=== PATIENT | female | born 1955 | race Caucasian/White ===

== ENCOUNTER 2018-11-07 19:49 | Outpatient (REF) | payer BC, SELFPAY | END 2018-11-07 20:09 | LOC: LBN 19:49 | PROVIDERS: PCP Nurse Practitioner Family; Visit Provider Nurse Practitioner Family | DX: R35.0 Frequency of micturition (principal) | CPT/HCPCS: 87077; 87086; 87186 ==

== ENCOUNTER 2018-11-25 01:27 | Outpatient (CLI) | payer MEDICARE, BC, SELFPAY ==
[2018-11-25 08:57] LABS: ALT 21 U/L (14-59); AST 18 U/L (15-37); Albumin 3.8 g/dL (3.4-5.0); Alkaline Phosphatase 64 U/L (46-116); Anion Gap 10.5 mmol/L (3-11); BUN 12 mg/dL (7-18); Bilirubin, Total 0.4 mg/dL (0.2-1.0); CO2 26.5 mmol/L (21.0-32.0); CREATININE 0.88 mg/dL (0.55-1.02); Calcium 9.3 mg/dL (8.5-10.1); Calculated LDL 163 mg/dL; Chloride 107 mmol/L (98-107); Cholesterol 239 mg/dL (50-200); Glucose 109 mg/dL (70-100); HDL Cholesterol 62 mg/dL (40-60); Hemoglobin A1C 5.7 % (4.5-6.2); Potassium 4.1 mmol/L (3.5-5.1); Sodium 144 mmol/L (136-145); Total Protein 6.7 g/dL (6.4-8.2); Triglyceride 71 mg/dL (30-150)
== END 2018-11-25 01:47 ==
PROVIDERS: PCP Nurse Practitioner Family; Visit Provider Nurse Practitioner Family
DX: E78.5 Hyperlipidemia, unspecified (principal); R73.03 Prediabetes
CPT/HCPCS: 36415; 80053; 80061; 83036

== ENCOUNTER 2018-12-25 01:29 | Outpatient (CLI) | payer MEDICARE, BC, SELFPAY ==
--- NOTE | 2018-12-25 15:00 | DI.DEXA_ITS ---
EXAM: XR DEXA BONE DENSITY W/WO AIMEE INDICATION: Osteoporosis screening, Z78.0, postmenopausal status. COMPARISON: 2012 TECHNIQUE: 2D digital imaging was performed. FINDINGS: The AIMEE image shows no evidence of compression fractures. Bone mineral density measurements of the l umbar spine correspond to a total T-score of -0.1, in the normal range. This is a 4.2 percent decrea se when compared with 2012. Bone mineral density measurements of the left hip correspond to a total T-score of 1.0 and a femoral neck T-score of 0.6, in the normal range. This is a 6.6 percent decrease from the previous exam. The bone mineral density measurements of the right forearm correspond to a T-score of the distal thir d of -1.3, in the osteopenic range. This represents a 4.9 percent decrease when compared with the pr evious exam. IMPRESSION: Normal bone mineral density of the lumbar spine and left hip. Osteopenia of the right forearm.
--- NOTE | 2018-12-25 15:24 | DI.MAMMO_ITS ---
EXAM: MG MAMMO SCREENINGd CLINICAL HISTORY: screening, Z12.39 TECHNIQUE: Mammograms were interpreted according to the usual protocol including computer analysis w [employer] CAD system, tomosynthesis and C-view imaging. COMPARISON: [id number] FINDINGS: The breasts are composed of scattered areas of fibroglandular density, breast density category B. No suspicious masses or microcalcifications are seen. There has been no significant change when compared with the prior examinations. IMPRESSION: Category 1, negative mammogram. Yearly screening mammography is recommended. BI-RADS Cat 1 - Negative Breast Density - Category B - Scattered areas of fibroglandular density
== END 2018-12-25 01:49 ==
PROVIDERS: PCP Nurse Practitioner Family; Visit Provider Nurse Practitioner Family
DX: Z12.31 Encounter for screening mammogram for malignant neoplasm of breast (principal); M85.88 Other specified disorders of bone density and structure, other site
CPT/HCPCS: 77063; 77067; 77080

== ENCOUNTER 2019-01-05 13:31 | Outpatient (REF) | payer MEDICARE, BC, SELFPAY ==
[2019-01-05 19:38] LABS: Bilirubin Negative (Negative); Blood Trace-intact (Negative); Clarity Clear (Clear); Glucose Negative (Negative); Ketones Negative (Negative); Leukocyte Esterase Small (Negative); Nitrite Negative (Negative); Specific Gravity <= 1.005 (1.005-1.025); Urobilinogen 0.2 EU/dL (Up TO 0.2); pH 5.5 (5-8)
[2019-01-05 20:59] LABS: Bacteria Moderate HPF (Negative); C & S Indicated? Yes; Casts Negative LPF (Negative); Crystals Negative HPF (Negative); Epithelial Cells Rare HPF (Negative); Mucus Negative (Negative); Other Cells Negative (Negative)
== END 2019-01-05 13:51 ==
LOC: LBN 13:31
PROVIDERS: PCP Nurse Practitioner Family; Visit Provider Nurse Practitioner Family
DX: R39.15 Urgency of urination (principal)
CPT/HCPCS: 81003; 81015; 87086

== ENCOUNTER → 2019-02-27 12:57 | Outpatient (BNVA) | payer MEDICARE, BC, SELFPAY | PROVIDERS: PCP Nurse Practitioner Family; Referring Provider Nurse Practitioner Family; Visit Provider Physical Therapy Assistant | DX: Z12.11 Encounter for screening for malignant neoplasm of colon (principal); Z80.0 Family history of malignant neoplasm of digestive organs ==

== ENCOUNTER 2019-03-04 13:35 | Outpatient (CLI) | payer MEDICARE, BC, SELFPAY ==
--- NOTE | 2019-03-04 13:55 | DI.RAD_ITS ---
EXAM: XR SHOULDER RT COMPLETE 2+V INDICATION: Shoulder Pain. COMPARISON: LEFT SHOULDER COMPLETE from 08/19/2012 TECHNIQUE: 2D digital imaging was performed. FINDINGS: No significant degenerative changes of the AC joint or glenohumeral joint. No tendon or joint space calcifications are seen. IMPRESSION: Negative right shoulder.
== END 2019-03-04 13:55 ==
PROVIDERS: PCP Nurse Practitioner Family; Visit Provider Student in an Organized Health Care Education/Training Program
DX: M25.511 Pain in right shoulder (principal); M75.01 Adhesive capsulitis of right shoulder
CPT/HCPCS: 99203; 99214; 73030

== ENCOUNTER 2019-03-20 08:19 | Day surgery (SDC) | payer MEDICARE, BC, SELFPAY ==
[2019-03-20 08:45] VITALS: BP 143/82; PULSE 69; RESP 18; TEMP 36.2; O2SAT 100
[2019-03-20] MEDS: Lactated Ringers 1,000 ML 80 ML IV (09:23)
--- NOTE | 2019-03-20 10:14 | W.COLOREPORT ---
Date of service: 03/20/19 Time of Service: 10:14 Colonoscopy Report Date of procedure: 03/20/19 Pre-op diagnosis general: 1st degee relative w/ CRC Post-op diagnosis procedure note: other (divertic) Procedure: CE Anesthesia proc note operative: GETA Estimated blood loss (mL): 0 Pathology: none sent Complications: None Disposition: same day Prep: Miralax/Dulcolax Retraction Time: 10 mins Procedure Description: After informed consent was obtained the patient was taken to the procedure room and placed in a left decubitous position. Monitors were applied and a time out was done. The patients name, date of , procedure, allergies to medications and metal in their body was reviewed. The patient was then sedated. Once sedated and comfortable a rectal exam was done. External exam shows few small anal tags/ext hemorrhoids. Internal exam revealed a normal sphincter tone and no palpable masses. The scope was then introduced and retrofelexed. No internal hemorrhoids were identified. The scope was then advanced to the cecum w/mild difficulty. Her colon is very tortuous and redundant. The TI and appendiceal orifice were identified. The prep was good. The scope was then slowly retracted over 10 minutes back into the rectum. no polyps or AVMs identified she has a few small scattered diverticula confined to the sigmoid colon with no signs of active bleeding or infection.. The scope was removed and the patient was woken up and taken back to Same day surgery in stable condition. The patient tolerated the procedure well and there were no immediate complications. Follow up: The patient should follow up in 5 years unless they develop changes in bowel habits or other new gastrointestinal complaints.
--- NOTE | 2019-03-20 10:27 | PDOC.DSDIS_ITS ---
Discharge Plan Disposition Patient Disposition: HOME Condition: Good Discharge Details Reason For Visit: colon scope Attending Provider: Giovana Palma Primary Care Provider: Tatiana Martínez Home Meds and New Rx's Prescriptions: Continued calcium carb,lactat-vitamin D3 200 mg calcium -250 unit tablet 2 tab PO DAILY RF: 0 Shingrix (PF) 50 mcg/0.5 mL suspension for reconstitution 0.5 ml IM ONCE Qty: 1 RF: 0 sulfamethoxazole-trimethoprim [Bactrim DS] 800-160 mg tablet 1 tab PO Q12H Qty: 10 RF: 0 vitamin D 1 cap every other day RF: 0 Discontinued polyethylene glycol 3350 17 gram/dose powder 238 g PO ONCE Qty: 238 RF: 0 bisacodyl [Dulcolax (bisacodyl)] 5 mg tablet,delayed release (DR/EC) 5 mg PO ONCE Qty: 4 RF: 0 Discharge Instructions Instructions: Diverticulosis (DC), Diverticulosis Diet (GEN), High Fiber Diet (GEN) Additional Instructions: Findings:few small diverticula. Avoid straining/constipation follow a high fiber diet, and consider adding in a fiber supplement like metamucil or phsyllium Follow up: repeat scope in 5 yrs time do to family History. Please call if you develop: fevers >101.5 Nausea or Vomiting Abdominal pain that is not transient DAY SURGERY UNIT POST COLONOSCOPY INSTRUCTIONS 1. Because there will be medication in your system for the next 24 hours, you may feel a little sleepy. Your coordination will be affected. Therefore: a. Do not drive or operate dangerous equipment for 24 hours. b. Do not drink alcohol beverages for 24 hours (not even beer). c. Plan to go home and rest for the day. 2. Generally there are no restrictions on your activity after a day or so has gone by, but you may feel a bit fatigued for a few days. 3 After you arrive home you may have a light meal and return to a normal diet as you can tolerate it without feeling sick to your stomach. 4. After surgery, you may feel pain or discomfort. This should be only transient , but if it persists please contact your doctor. 5. If there are any questions regarding the findings of your procedure, please feel free to contact your doctor. 6. If you are unable to contact your doctor with a problem, contact the hospital at [phone]. 7. Continue all your regular medications unless directed otherwise. I understand the above instructions and have no questions. Signature of Patient or Responsible Adult Escort Date/Time Name of Responsible Adult Escort Signature of Nurse Date/Time Activity:: No lifting over 20 pounds or strenuous activity x24 hours Diet:: Small light meals x24 hours Discharge Orders Discharge Orders: Discharge Order (Routine); Ordered 03/20/19 Ordered By: Giovana Palma DS: Diagnosis Discharge Diagnosis (1) Diverticula of colon: Status: Acute
[2019-03-20 10:46] VITALS: BP 133/78; PULSE 50; RESP 16; TEMP 36.2; O2SAT 100
== END 2019-03-20 11:18 | disposition home or self-care (01) ==
PROVIDERS: PCP Nurse Practitioner Family; Visit Provider Surgery
PROC: 0DJD8ZZ Inspection of Lower Intestinal Tract, Via Natural or Artificial Opening Endoscopic (ICD-10-PCS; CPT 45378; principal; 2019-03-20 09:45)
DX: Z12.11 Encounter for screening for malignant neoplasm of colon (principal); Z80.0 Family history of malignant neoplasm of digestive organs; K57.30 Diverticulosis of large intestine without perforation or abscess without bleeding; K63.89 Other specified diseases of intestine; K64.4 Residual hemorrhoidal skin tags
CPT/HCPCS: G0105; J2001; J2704

== ENCOUNTER 2020-01-25 03:53 | Outpatient (CLI) | payer MEDICARE, BC, SELFPAY ==
[2020-01-25 11:28] LABS: Hemoglobin A1C 5.6 % (<5.7)
[2020-01-25 12:18] LABS: Anion Gap 5.6 mmol/L (3-11); BUN 17 mg/dL (7-18); CO2 29.4 mmol/L (21.0-32.0); CREATININE 0.98 mg/dL (0.55-1.02); Calculated LDL 216 mg/dL (<100); Chloride 108 mmol/L (98-107); Cholesterol 316 mg/dL (<200); Estimated GFR 56.78 (mL/min/1.73m2); Glucose 96 mg/dL (74-106); HDL Cholesterol 64 mg/dL (40-60); Potassium 4.4 mmol/L (3.5-5.1); Sodium 143 mmol/L (136-145); Triglyceride 184 mg/dL (<150)
[2020-01-25 12:40] LABS: Vitamin D 25 Total 16.9 ng/ml (30-100)
== END 2020-01-25 04:13 ==
PROVIDERS: PCP Nurse Practitioner Family; Visit Provider Nurse Practitioner Family
DX: E78.5 Hyperlipidemia, unspecified (principal); R73.03 Prediabetes; M85.80 Other specified disorders of bone density and structure, unspecified site
CPT/HCPCS: 36415; 80048; 80061; 82306; 83036

== ENCOUNTER 2020-08-02 03:51 | Outpatient (CLI) | payer MEDICARE, BC, SELFPAY ==
[2020-08-02 15:28] LABS: Calculated LDL 176 mg/dL (<100); Cholesterol 258 mg/dL (<200); HDL Cholesterol 68 mg/dL (40-60); Triglyceride 72 mg/dL (<150)
[2020-08-02 15:37] LABS: Uric Acid 5.8 mg/dL (2.6-6.0)
[2020-08-04 05:16] LABS: Vitamin D 25 Total 48.1 ng/mL (30-100)
== END 2020-08-02 03:52 | disposition home or self-care (01) ==
LOC: LBO 03:51
PROVIDERS: PCP Nurse Practitioner Family; Visit Provider Nurse Practitioner Family
DX: E78.5 Hyperlipidemia, unspecified (principal); M79.674 Pain in right toe(s); E55.9 Vitamin D deficiency, unspecified
CPT/HCPCS: 36415; 80061; 82306; 84550

== ENCOUNTER 2021-05-09 00:25 | Outpatient (CLI) | payer MEDICARE, BC, SELFPAY ==
--- NOTE | 2021-05-09 07:30 | DI.MAMMO_ITS ---
Exam(s) MAMMO SCREENING EXAM: MAMMO SCREENING CLINICAL HISTORY: screening,z12.39 TECHNIQUE: Mammograms were interpreted according to the usual protocol including computer analysis w [employer] CAD system, tomosynthesis and C-view imaging. COMPARISON: 2011 through 2018 FINDINGS: The breasts are composed of scattered fibroglandular densities, Breast Density category B. No suspicious masses or suspicious microcalcifications are seen. No skin thickening or abnormal axillary lymph nodes are seen. There has been no significant change from prior exams. IMPRESSION: BI-RADS Category 1, Negative mammogram Yearly screening mammography is recommended. Breast Density - Category B, scattered fibroglandular densities. A negative radiographic report should not delay biopsy if a dominant or clinically suspicious mass is present. Up to ten percent of cancers are not identified on mammography. A negative report may reinforce clinical impression. Adenosis and dense breasts may obscure an underlying neoplasm. False positive reports average 6 to 10%. Patient will receive a letter notifying them of these results.
== END 2021-05-09 00:45 ==
PROVIDERS: PCP Family Medicine; Visit Provider Family Medicine
DX: Z12.31 Encounter for screening mammogram for malignant neoplasm of breast (principal)
CPT/HCPCS: 77063; 77067

== ENCOUNTER 2021-09-06 10:52 | Inpatient (IN) | payer MEDICARE, BC, SELFPAY ==
[2021-09-06] VITALS (11 sets, daily range): BP systolic 140–179; BP diastolic 67–84; PULSE 56–71; RESP 12–16; TEMP 35.9–37; O2SAT 94–100; BMI 20.8
--- NOTE | 2021-09-06 11:00 | DI.CT_ITS ---
Exam(s) CT ABDOMEN PELVIS WO EXAM: CT ABDOMEN PELVIS WO CLINICAL HISTORY: right flank pain radiating to RLQ. TECHNIQUE: Imaging Protocol: Axial computed tomography images with coronal and sagittal reformatted images were created and reviewed CONTRAST MATERIAL: Intravenous: none Oral: None COMPARISON: No exams were available for comparison FINDINGS: VISUALIZED LUNG BASES: Mild symmetrical benign-appearing markings in both lung bases. No ominous pul monary nodules. No pleural effusions. ABDOMEN: There is no ascites. LIVER: There are no obvious focal hepatic lesions evident of this noninfused study. GALLBLADDER/BILIARY: No obvious gallbladder pathology. CBD is not dilated. PANCREAS: No evidence of pancreatic mass nor dilatation of the pancreatic duct. SPLEEN: Spleen is not enlarged. No obvious intrasplenic lesions. ADRENALS: There are no significant adrenal masses. KIDNEYS:Left kidney unremarkable. There is 2 nonobstructive calculus in lower pole calyx of the righ t kidney. Right ureter unremarkable. No calculi in the ureter nor in the ureterovesical junction. No calculi in the urinary bladder ABDOMINAL AORTA: Abdominal aorta is not enlarged. LYMPH NODES: There is no retroperitoneal nor paraaortic adenopathy. ABDOMINAL WALL: No evidence of significant anterior abdominal wall nor inguinal hernia. GI: There is no evidence of bowel obstruction, free air, nor abscess. PELVIS: LYMPH NODES: There is no intrapelvic nor inguinal adenopathy. GI: The appendix is thickened to a diameter of 9 millimeters and is straightening. It is retrocecal. There is some surrounding streaking.No evidence of sigmoid diverticulitis. URINARY BLADDER: No calculi nor obvious masses evident REPRODUCTIVE: Uterus is atrophic. No abnormal adnexal masses. No free fluid. OSSEOUS: No significant osseous lesions. Sacroiliac joints unremarkable. Advanced disc space narrowing at L5-S1 level noted. IMPRESSION: 1. Findings are consistent with acute retrocecal appendicitis. No evidence of rupture at this time. 2. Right renal calculi incidentally noted. Report called by myself to ER provider. RADIATION DOSE DELIVERED: 748.81mGy.cm Total DLP DATA REPOSITORY: All CT scans at this facility are submitted to the National Radiology Data Registry (NRDR) Dose Index Registry (DIR) with the [employer] (ACR). RADIATION OPTIMIZATION: All CT scans at this facility use at least one of these dose optimization te chniques: automated exposure control; mA and/or kV adjustment per patient size (includes targeted exa ms where dose is matched to clinical indication); or iterative reconstruction.
[2021-09-06 11:35] LABS: Abs Immature Grans 0.01 10^3/uL (0.0-0.06); Absolute Basophil Count 0.02 10^3/uL (0.0-0.2); Absolute Eosinophil Count 0.01 10^3/uL (0.0-0.7); Absolute Lymphocyte Count 0.81 10^3/uL (1.2-3.4); Absolute Monocyte Count 0.23 10^3/uL (0.1-0.8); Absolute Neutrophil Count 4.72 10^3/uL (1.2-6.7); Basophils % 0.3; Eosinophils % 0.2; HGB 13.8 g/dL (11.2-15.7); Immature Grans % 0.2; MCH 30.9 pg (27.0-33.0); MCHC 33.7 % (32.0-36.0); MCV 92 fL (80-95); Neutrophils % 81.3; Platelet Count 161 10^3/uL (130-400); RBC 4.47 10^6/uL (3.93-5.22); RDW 12.3 % (11.7-14.6); RDW-SD 41.7 fL
--- NOTE | 2021-09-06 11:46 | ED.GENADUL_ITS ---
Discharge Plan Disposition Patient Disposition: [facility] INPATIENT Condition: Stable Discharge Details Clinical Impression: Acute appendicitis Admit Date/Time: 09/06/21 18:13 Admit Provider: Antonino Tinoco Attending Provider: Antonino Tinoco Primary Care Provider: Hortensia Roe ED Provider: Saturnino Ramirez Discharge Data Discharge Date/Time-TO BE ENTERED AT DEPARTURE: 09/06/21 16:46 Medical Decision Making <CLEMENTINE Mauro - Last Filed: 09/07/21 13:05> hematuria, will need assessment by pcp in oupatient setting labs wnl pain controlled throughout encounter discussed ct findings of retrocecal appendicitis with Dr Somers radiologist discussed with Dr Tinoco, surgery pt to OR this PM likely, npo <CLEMENTINE Yao - Last Filed: 09/06/21 16:56> hematuria, will need assessment by pcp in oupatient setting labs wnl pain controlled throughout encounter discussed ct findings of retrocecal appendicitis with Dr Somers radiologist discussed with Dr Tinoco, surgery pt to OR this PM likely, npo Case signed out to me at 1530 by my colleague CLEMENTINE Khanna, patient diagnosed with appendicitis and awaiting transfer to the OR. Our surgical team has alre lala been consulted and they have accepted care of the patient. The patient was observed in the ER until the OR was ready to accept care of the patient. Patient has no evidence of decompensation. Patient transferred to the OR without complication This documentation was generated using [employer] dictation system, please disregard any oddities of phrase or misspellings. HPI <CLEMENTINE Mauro - Last Filed: 09/07/21 13:05> General Date/Time Provider Initiated Documentation: 09/06/21 11:04 . 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 She was nauseous with the pain but symptoms resolved. She was given Tylenol by EMS no longer present. Denies any urinary complaints. Denies history of similar pain in the past. Denies any fever or chills. Denies any chest pain or shortness of breath. Denies Exacerbating or alleviating factors. Related Data Home Medications Medication Instructions Recorded Confirmed calcium carb and lactate 200 2 tab PO DAILY 11/27/18 09/06/21 mg-vitamin D3 6.25 mcg (250 unit) tablet naproxen sodium 220 mg capsule 220 mg PO PRN PRN 03/17/21 09/06/21 (Aleve) tramadol 50 mg tablet (Ultram) 50 mg PO Q4H PRN PRN #10 tabs 09/07/21 Previous Rx's Medication Instructions Recorded tramadol 50 mg tablet (Ultram) 50 mg PO Q4H PRN PRN #10 tabs 09/07/21 Allergies Allergy/AdvReac Type Severity Reaction Status Date / Time No Known Allergies Allergy Unverified 09/06/21 11:01 General Stated Complaint: Abd Prob LOVE: 3 Review of Systems <CLEMENTINE Mauro - Last Filed: 09/07/21 13:05> All systems reviewed & are unremarkable except as noted in HPI and below PFSH <CLEMENTINE Mauro - Last Filed: 09/07/21 13:05> All Active Problems (Updated 09/06/21 @ 16:56 by CLEMENTINE Yao) Acute appendicitis (Acute) Hyperlipidemia (Chronic) Osteopenia (Chronic) Dexa scan 12/25/18 Medical History (Updated 09/06/21 @ 16:56 by CLEMENTINE Yao) Hepatitis C virus infection cured after antiviral drug therapy (~2001) Interferon/Ribaviron Sigmoid diverticulosis Surgical History Hx of colonoscopy (03/20/19) S/P tonsillectomy (~1957) Family History (Updated 03/20/21 @ 18:26 by Susannah Lora) Mother Type 2 diabetes mellitus Crohn's disease Dementia Hypertension Skin cancer Diabetes Heart disease Father , in his 50s of stroke Alcohol abuse Dementia Hypertension Parkinson disease Stroke Sister , 12/2019 Substance abuse heroin Type 2 diabetes mellitus Heart disease COPD (chronic obstructive pulmonary disease) Hypertension Alcohol abuse Cancer Depression Diabetes Hyperlipidemia Sister Osteoarthritis Sister Heart disease Myocardial infarction Skin cancer Colon cancer Brother Type 2 diabetes mellitus Hypertension Colon cancer Diabetes Heart disease Hyperlipidemia Brother Prostate cancer Maternal Grandfather Heart disease Maternal Grandmother Heart disease Rheumatic heart disease Paternal Grandfather Heart disease Paternal Grandmother Heart disease Social History (Updated 03/20/21 @ 18:21 by Susannah Lora) Smoking/Tobacco Use Status: Former Tobacco Use tobacco type: cigarettes Quit Date: 02/24/90 Tobacco: How many years used: 15 Second Hand Exposure: Yes Smoking risk assessment performed?: Yes Alcohol Intake: former Year quit: 1990 Drug use: Never Substance use type: does not use Caregiver/Support person: No Household members: spouse and family Housing: house Communication Needs: None Education Level: master's degree Do you need help understanding health information?: Never current occupation: Worked in [employer] x 30 years, circuit / computer design Pets and animals: Yes Pets and animals: dog(s) Sexually active: No Do you think of yourself as: straight/heterosexual Current gender identity: female What is your relationship status?: How often do you talk on the phone with friends or family?: three or more times per week Panel score (0-1 are the most socially isolated patients): 2 What type of physical activity do you participate in: weight lifting and yoga Duration: 60-90 minutes/day Frequency: 3-4 times per week Lorraine/Alevism: No preference Special lorraine needs: No Seatbelt use: always Helmet use: Yes Helmet use: always Drive intox or ride w/intox bus driver/monitor: No Do you feel safe at home: Yes Do you feel safe in your relationship?: Yes Additional Social history: Enjoys skiing in winter, hiking in the summer. Female Reproductive History Menstrual Menopause type: natural History History 2 Para 0 Hx # Term Pregnancies Multiple births Hx # Pregnancies Ectopic pregnancies AB induced Hx Number of Living Children AB spontaneous Exam <CLEMENTINE Mauro - Last Filed: 09/07/21 13:05> Const General: cooperative, comfortable and no acute distress Orientation: alert and oriented x3 Eyes Sclera: sclerae normal Resp Effort & Inspection: normal respiratory effort Auscultation: clear to auscultation bilaterally Cardio Rate: regular rate Rhythm: regular rhythm GI Inspection: normal to inspection Other: Nontender abdominal exam Back/Spine/Pelvis Back: no CVA tenderness Skin General skin exam: no rashes or lesions noted Neuro General: patient alert and patient oriented x3 Course <CLEMENTINE Mauro - Last Filed: 09/07/21 13:05> Vital Signs Vital signs: Vital Signs Temperature 37 C 09/06/21 10:55 Pulse 71 09/06/21 10:55 Respiratory Rate 16 09/06/21 10:55 Blood Pressure 140/76 09/06/21 10:55 Pulse Oximetry 96 09/06/21 10:55 Temperature 37 C 09/06/21 10:55 Temperature Source Temporal Artery Scan 09/06/21 10:55 Pulse 71 09/06/21 10:55 Respiratory Rate 16 09/06/21 10:55 Respiratory Effort 09/06/21 11:01 Blood Pressure 140/76 09/06/21 10:55 Blood Pressure Position Sitting 09/06/21 10:55 Pulse Oximetry 96 09/06/21 10:55 Oxygen Delivery Method Room Air 09/06/21 10:55 Oxygen Flow Rate 0 09/06/21 10:55 Pain Level 0 09/06/21 11:35 Lab/Test Results Lab/Test Results: Laboratory Tests Range/Units 09/06/21 11:30 WBC (4.4-10.8) 10^3/uL 5.80 RBC (3.93-5.22) 10^6/uL 4.47 Hgb (11.2-15.7) g/dL 13.8 Hct (36.0-46.0) % 41.0 MCV (80-95) fL 92 MCH (27.0-33.0) pg 30.9 MCHC (32.0-36.0) % 33.7 RDW (11.7-14.6) % 12.3 Plt Count (130-400) 10^3/uL 161 MPV (8.0-11.0) fL 11.0 Immature Gran % 0.2 Neutrophils % 81.3 Lymphocytes % 14.0 Monocytes % 4.0 Eosinophils % 0.2 Basophils % 0.3 Nucleated RBC % (0.0-0.3) % 0.0 Absolute Neutrophils (1.2-6.7) 10^3/uL 4.72 Absolute Lymphocytes (1.2-3.4) 10^3/uL 0.81 L Absolute Monocytes (0.1-0.8) 10^3/uL 0.23 Absolute Eosinophils (0.0-0.7) 10^3/uL 0.01 Absolute Basophils (0.0-0.2) 10^3/uL 0.02 Sign Out <CLEMENTINE Mauro - Last Filed: 09/07/21 13:05> Sign Out Data: Sign Out Comment: pending OR Last updated by Zhanna Khanna PA at 09/06/21 15:28
[2021-09-06 11:52] LABS: ALT 18 U/L (14-59); AST 12 U/L (15-37); Albumin 3.5 g/dL (3.4-5.0); Alkaline Phosphatase 51 U/L (46-116); Anion Gap 5.9 mmol/L (3-11); BUN 23 mg/dL (7-18); Bilirubin, Total 0.5 mg/dL (0.2-1.0); CO2 29.1 mmol/L (21.0-32.0); CREATININE 0.9 mg/dL (0.55-1.02); Calcium 8.5 mg/dL (8.5-10.1); Chloride 107 mmol/L (98-107); Glucose 112 mg/dL (74-106); Lipase 108 U/L (73-393); Potassium 4.1 mmol/L (3.5-5.1); Sodium 142 mmol/L (136-145); Total Protein 6.1 g/dL (6.4-8.2)
[2021-09-06 11:55] LABS: Bilirubin Negative (Negative); Blood Moderate (Negative); Clarity Clear (Clear); Glucose Negative (Negative); Ketones Negative (Negative); Leukocyte Esterase Negative (Negative); Nitrite Negative (Negative); Specific Gravity 1.025 (1.005-1.025); Urobilinogen 0.2 EU/dL (Up TO 0.2); pH 5.5 (5-8)
[2021-09-06 13:25] LABS: Bacteria Negative HPF (Negative); C & S Indicated? No; Casts Negative LPF (Negative); Crystals Negative HPF (Negative); Epithelial Cells Rare HPF (Negative); Mucus Negative (Negative); RBC 20-50 HPF (0-2); WBC Negative HPF (0-5)
[2021-09-06 13:25] LABS: Source Nasal/Nares
[2021-09-06] MEDS: PIPERACILLIN/TAZO 3.375 GM in Normal Saline 50 ML IVPB (13:34)
--- NOTE | 2021-09-06 13:49 | W.PREOPHP ---
Documented by User: CLEMENTINE Gardner 09/06/21 14:01 Assessment and Plan Assessment and plan (1) Acute appendicitis: Status: Acute Assessment and plan: 65 y/o healthy female with a benign medical history with acute appendicitis noted on CT scan following ER evaluation of severe right flank pain. Unable to recreate patient's complaints of abdominal discomfort and right flank pain. No leukocytosis Last ate 0800 Discussed the procedure of laparoscopic appendectomy, the risks and benefits to include bleeding, infection, hernia, abscess, blood clots etc. All questions were answered to patient's satisfaction and she wishes to proceed. Dr. Tinoco will also evaluate the patient and discuss the procedure. Discussed post-op restrictions of no heavy pushing, pulling or lifting. Patient and her are the main caregivers of her elderly mother and she will be arranging assistance for her mother's care. P// Laparosocopic Appendectomy History of Present Illness Narrative: 65 y/o female with a history of hyperlipidemia presented to the ER via EMS for further evaluation of severe right flank pain. She states that she woke up in the night and this morning with mild right flank pain and diarrhea. Which progressed early this morning. She states her pain fully resolved after having tylenol from EMS. CT scan showed Findings consistent with acute retrocecal appendicitis.? No evidence of rupture at this time and Right renal calculi incidentally noted. She reports she last ate at 0800 eating toast with peanut butter. She denies having any nausea, vomiting or heartburn. Denies chest pain, palpitations, dyspnea or dyspnea with exertion. She reports being physically activie participating in boot camp 2x/wk, yoga 3x/wk and walks her dog daily. Denies personal or family history of adverse reactions to anesthesia. Denies any history of VT, stroke, seizures, bleeding or clotting disorders. Denies having any implanted metal. Denies any history of chemotherapy or radiation. She denies any use of cigarettes, chewing tobacco, ETOH, marijuana or any other recreational or illegal drugs. PFSH All Active Problems (Updated 09/06/21 @ 16:56 by CLEMENTINE Yao) Acute appendicitis (Acute) Hyperlipidemia (Chronic) Osteopenia (Chronic) Dexa scan 12/25/18 Medical History (Updated 09/06/21 @ 16:56 by CLEMENTINE Yao) Hepatitis C virus infection cured after antiviral drug therapy (~2001) Interferon/Ribaviron Sigmoid diverticulosis Surgical History Hx of colonoscopy (03/20/19) S/P tonsillectomy (~1957) Family History (Updated 03/20/21 @ 18:26 by Susannah Lora) Mother Type 2 diabetes mellitus Crohn's disease Dementia Hypertension Skin cancer Diabetes Heart disease Father , in his 50s of stroke Alcohol abuse Dementia Hypertension Parkinson disease Stroke Sister , 12/2019 Substance abuse heroin Type 2 diabetes mellitus Heart disease COPD (chronic obstructive pulmonary disease) Hypertension Alcohol abuse Cancer Depression Diabetes Hyperlipidemia Sister Osteoarthritis Sister Heart disease Myocardial infarction Skin cancer Colon cancer Brother Type 2 diabetes mellitus Hypertension Colon cancer Diabetes Heart disease Hyperlipidemia Brother Prostate cancer Maternal Grandfather Heart disease Maternal Grandmother Heart disease Rheumatic heart disease Paternal Grandfather Heart disease Paternal Grandmother Heart disease Social History (Updated 03/20/21 @ 18:21 by Susannah Lora) Smoking/Tobacco Use Status: Former Tobacco Use tobacco type: cigarettes Quit Date: 02/24/90 Tobacco: How many years used: 15 Second Hand Exposure: Yes Smoking risk assessment performed?: Yes Alcohol Intake: former Year quit: 1990 Drug use: Never Substance use type: does not use Caregiver/Support person: No Household members: spouse and family Housing: house Communication Needs: None Education Level: master's degree Do you need help understanding health information?: Never current occupation: Worked in [employer] x 30 years, circuit / computer design Pets and animals: Yes Pets and animals: dog(s) Sexually active: No Do you think of yourself as: straight/heterosexual Current gender identity: female What is your relationship status?: How often do you talk on the phone with friends or family?: three or more times per week Panel score (0-1 are the most socially isolated patients): 2 What type of physical activity do you participate in: weight lifting and yoga Duration: 60-90 minutes/day Frequency: 3-4 times per week Lorraine/Christianity: No preference Special lorraine needs: No Seatbelt use: always Helmet use: Yes Helmet use: always Drive intox or ride w/intox fence post driver: No Do you feel safe at home: Yes Do you feel safe in your relationship?: Yes Additional Social history: Enjoys skiing in winter, hiking in the summer. Female Reproductive History Menstrual Menopause type: natural History History 2 Para 0 Hx # Term Pregnancies Multiple births Hx # Pregnancies Ectopic pregnancies AB induced Hx Number of Living Children AB spontaneous Meds Allergies and Home Medications Allergies Allergy/AdvReac Type Severity Reaction Status Date / Time No Known Allergies Allergy Unverified 09/06/21 11:01 Home Medications Medication Instructions Recorded Confirmed Type calcium carb and lactate 200 2 tab PO DAILY 11/27/18 09/06/21 History mg-vitamin D3 6.25 mcg (250 unit) tablet naproxen sodium 220 mg capsule 220 mg PO PRN PRN 03/17/21 09/06/21 History (Aleve) Exam Const General: cooperative, healthy appearing and comfortable Orientation: alert and oriented x3 Resp Effort & Inspection: normal respiratory effort, no audible wheezes and no cough Auscultation: clear to auscultation bilaterally and no wheezes GI Inspection: normal to inspection Palpation: soft, no guarding and nontender Auscultation: normal bowel sounds Results Labs Result diagrams: 09/06/21 11:30 09/06/21 11:30 Labs: Laboratory Results - last 24 hr 09/06/21 09/06/21 09/06/21 11:30 11:30 11:50 WBC 5.80 RBC 4.47 Hgb 13.8 Hct 41.0 MCV 92 MCH 30.9 MCHC 33.7 RDW 12.3 Plt Count 161 MPV 11.0 Immature Gran % 0.2 Neutrophils % 81.3 Lymphocytes % 14.0 Monocytes % 4.0 Eosinophils % 0.2 Basophils % 0.3 Nucleated RBC % 0.0 Absolute Neutrophils 4.72 Absolute Lymphocytes 0.81 L Absolute Monocytes 0.23 Absolute Eosinophils 0.01 Absolute Basophils 0.02 Sodium 142 Potassium 4.1 Chloride 107 Carbon Dioxide 29.1 Anion Gap 5.9 BUN 23 H Creatinine 0.9 Estimated GFR/1.73 m2 >= 60.00 Glucose 112 H Calcium 8.5 Total Bilirubin 0.5 AST 12 L ALT 18 Alkaline Phosphatase 51 Total Protein 6.1 L Albumin 3.5 Lipase 108 Urine Color Yellow Urine Clarity Clear Urine pH 5.5 Ur Specific [place] 1.025 Urine Protein Negative Urine Ketones Negative Urine Blood Moderate H Urine Nitrite Negative Urine Bilirubin Negative Urine Urobilinogen 0.2 Ur Leukocyte Esterase Negative Urine RBC 20-50 H Urine WBC Negative Ur Epithelial Cells Rare Urine Crystals Negative Urine Bacteria Negative Urine Casts Negative Urine Mucus Negative Ur Culture Indicated? No Urine Glucose Negative COVID-19 Source 09/06/21 13:20 WBC RBC Hgb Hct MCV MCH MCHC RDW Plt Count MPV Immature Gran % Neutrophils % Lymphocytes % Monocytes % Eosinophils % Basophils % Nucleated RBC % Absolute Neutrophils Absolute Lymphocytes Absolute Monocytes Absolute Eosinophils Absolute Basophils Sodium Potassium Chloride Carbon Dioxide Anion Gap BUN Creatinine Estimated GFR/1.73 m2 Glucose Calcium Total Bilirubin AST ALT Alkaline Phosphatase Total Protein Albumin Lipase Urine Color Urine Clarity Urine pH Ur Specific [place] Urine Protein Urine Ketones Urine Blood Urine Nitrite Urine Bilirubin Urine Urobilinogen Ur Leukocyte Esterase Urine RBC Urine WBC Ur Epithelial Cells Urine Crystals Urine Bacteria Urine Casts Urine Mucus Ur Culture Indicated? Urine Glucose COVID-19 Source Nasal/Nares Last Vital Signs Temp 37 C 09/06/21 10:55 Pulse 71 09/06/21 10:55 Resp 16 09/06/21 10:55 BP 140/76 09/06/21 10:55 Pulse Ox 96 09/06/21 10:55 Documented by User: Antonino Tinoco MD 09/06/21 18:06 Assessment and Plan Assessment and plan (1) Acute appendicitis: Status: Acute Assessment and plan: 65 y/o healthy female with a benign medical history with acute appendicitis noted on CT scan following ER evaluation of severe right flank pain. Unable to recreate patient's complaints of abdominal discomfort and right flank pain. No leukocytosis Last ate 0800 Discussed the procedure of laparoscopic appendectomy, the risks and benefits to include bleeding, infection, hernia, abscess, blood clots etc. All questions were answered to patient's satisfaction and she wishes to proceed. Dr. Tinoco will also evaluate the patient and discuss the procedure. Discussed post-op restrictions of no heavy pushing, pulling or lifting. Patient and her are the main caregivers of her elderly mother and she will be arranging assistance for her mother's care. P// Laparosocopic Appendectomy I met with Ms. Hession and I agree with the history and physical exam as documented by Ghazala Hsieh. I think she has acute appendicitis and will benefit from laparoscopic appendectomy. We discussed the risks and benefits of appendectomy as well as other treatment options including antibiotic therapy and nonoperative management. She provided informed consent for appendectomy and we have made arrangements for emergency surgery tonight. For now, we will continue with parenteral antibiotics. History of Present Illness Narrative: 65 y/o female with a history of hyperlipidemia presented to the ER via EMS for further evaluation of severe right flank pain. She states that she woke up in the night and this morning with mild right flank pain and diarrhea. Which progressed early this morning. She states her pain fully resolved after having tylenol from EMS. CT scan showed Findings consistent with acute retrocecal appendicitis.? No evidence of rupture at this time and Right renal calculi incidentally noted. She reports she last ate at 0800 eating toast with peanut butter. She denies having any nausea, vomiting or heartburn. Denies chest pain, palpitations, dyspnea or dyspnea with exertion. She reports being physically activie participating in boot camp 2x/wk, yoga 3x/wk and walks her dog daily. Denies personal or family history of adverse reactions to anesthesia. Denies any history of VT, stroke, seizures, bleeding or clotting disorders. Denies having any implanted metal. Denies any history of chemotherapy or radiation. She denies any use of cigarettes, chewing tobacco, ETOH, marijuana or any other recreational or illegal drugs. PFSH All Active Problems (Updated 09/06/21 @ 16:56 by CLEMENTINE Yao) Acute appendicitis (Acute) Hyperlipidemia (Chronic) Osteopenia (Chronic) Dexa scan 12/25/18 Medical History (Updated 09/06/21 @ 16:56 by CLEMENTINE Yao) Hepatitis C virus infection cured after antiviral drug therapy (~2001) Interferon/Ribaviron Sigmoid diverticulosis Surgical History Hx of colonoscopy (03/20/19) S/P tonsillectomy (~1957) Family History (Updated 03/20/21 @ 18:26 by Susannah Lora) Mother Type 2 diabetes mellitus Crohn's disease Dementia Hypertension Skin cancer Diabetes Heart disease Father , in his 50s of stroke Alcohol abuse Dementia Hypertension Parkinson disease Stroke Sister , 12/2019 Substance abuse heroin Type 2 diabetes mellitus Heart disease COPD (chronic obstructive pulmonary disease) Hypertension Alcohol abuse Cancer Depression Diabetes Hyperlipidemia Sister Osteoarthritis Sister Heart disease Myocardial infarction Skin cancer Colon cancer Brother Type 2 diabetes mellitus Hypertension Colon cancer Diabetes Heart disease Hyperlipidemia Brother Prostate cancer Maternal Grandfather Heart disease Maternal Grandmother Heart disease Rheumatic heart disease Paternal Grandfather Heart disease Paternal Grandmother Heart disease Social History (Updated 03/20/21 @ 18:21 by Susannah Lora) Smoking/Tobacco Use Status: Former Tobacco Use tobacco type: cigarettes Quit Date: 02/24/90 Tobacco: How many years used: 15 Second Hand Exposure: Yes Smoking risk assessment performed?: Yes Alcohol Intake: former Year quit: 1990 Drug use: Never Substance use type: does not use Caregiver/Support person: No Household members: spouse and family Housing: house Communication Needs: None Education Level: master's degree Do you need help understanding health information?: Never current occupation: Worked in [employer] x 30 years, circuit / computer design Pets and animals: Yes Pets and animals: dog(s) Sexually active: No Do you think of yourself as: straight/heterosexual Current gender identity: female What is your relationship status?: How often do you talk on the phone with friends or family?: three or more times per week Panel score (0-1 are the most socially isolated patients): 2 What type of physical activity do you participate in: weight lifting and yoga Duration: 60-90 minutes/day Frequency: 3-4 times per week Lorraine/Christianity: No preference Special lorraine needs: No Seatbelt use: always Helmet use: Yes Helmet use: always Drive intox or ride w/intox fence post driver: No Do you feel safe at home: Yes Do you feel safe in your relationship?: Yes Additional Social history: Enjoys skiing in winter, hiking in the summer. History History 2 Para 0 Hx # Term Pregnancies Multiple births Hx # Pregnancies Ectopic pregnancies AB induced Hx Number of Living Children AB spontaneous Meds Allergies and Home Medications Allergies Allergy/AdvReac Type Severity Reaction Status Date / Time No Known Allergies Allergy Unverified 09/06/21 11:01 Home Medications Medication Instructions Recorded Confirmed Type calcium carb and lactate 200 2 tab PO DAILY 11/27/18 09/06/21 History mg-vitamin D3 6.25 mcg (250 unit) tablet naproxen sodium 220 mg capsule 220 mg PO PRN PRN 03/17/21 09/06/21 History (Aleve) Results Labs Result diagrams: 09/06/21 11:30 09/06/21 11:30
--- OUTSIDE RECORDS SUMMARY | 2021-09-06 14:08 | XMS_ITS | Encounter Summary ---
:1955 Author Organization [facility] [place] [address] Care Team Providers Name Role Phone Zoraida Iyer MD Primary Care Provider Reason for Visit Reason Comments Skin Check Encounter Details Date Type Department Care Team Description 05/02/2011 Office Visit Dermatology Narinder Randolph, History of basal cell carcin toma (Primary Dx); [address] [facility] Seborrheic keratosis; [address] [place], [place] DERMATOLOGY [address] [place] [address] [phone] (Wo rk) Social History Tobacco Use Types Packs/Day Years Used Date Never Smoker Sex Assigned at Date Recorded Not on file documented as of this encounter Progress Notes Narinder Randolph MD - 05/02/2011 5:17 PM EST Problem: 1. Skin checkup. 2. History of BCCa(s) 1997, right forearm and central upper back treated in [place]. 3. Bothersome nevi. Aury is a 55-year-old woman who is referred today by Zoraida Iyer MD for a general skin checkup. The patient is concerned about some lesions on her left cheek, left neck and also the right superior shoulder. Physical examination reveals a pleasant 55-year-old who has a waxy stuck on appearing 5mm seborrheic keratosis on the left lateral cheek, 5mm compound versus intradermal nevus of similar pigmentation as the seborrheic keratosis on the left lateral neck, and she has a hyperkeratotic nonpigmented seborrheic keratosis often rubbed and irritated by her bra strap on the right superior shoulder. Otherwise careful examination of the head, neck, chest, back, hands, arms, forearms, thighs and calves reveals well healed BCCa excision scars on the right arm and upper back but no evidence of recurrent BCCa. The patient is very fair skinned, blue eyed, fair haired but examination today is benign. Assessment & Plan: Bothersome seborrheic keratoses and nevus: left face, left neck and right superior shoulder. a. After obtaining patient consent, the sites were anesthetized and removed with light shave C & D. b. Triple antibiotic ointment and Band-Aids placed. c. Wound care instructions and supplies given. d. RTC on a p.r.n. basis. History of BCCa(s). a. This was about fourteen years ago and the patient has had no recurrence or further difficulties. b. I would recommend that she be followed by Dr. Iyer and I will be happy to see the patient back prn. The patient is quite knowledgeable about recognizing new lesions on her skin. She will keep an eye on these as well as Dr. Iyer and I would be happy to see her back as necessary for repeat skin check. Copy: Zoraida Iyer MD documented in this encounter Plan of Treatment Not on filedocumented as of this encounter Visit Diagnoses Diagnosis History of basal cell carcinoma - Primar y Personal history of other malignant neop lasm of skin Seborrheic keratosis Other seborrheic keratosis Nevus Benign neoplasm of skin, site unspecifie d documented in this encounter Care Teams Glass Presser Relationship Specialty Start Date End Date Zoraida Iyer MD PCP - General 03/07/11 02/01/19 [address] [place] [address] documented as of this encounter
--- OUTSIDE RECORDS SUMMARY | 2021-09-06 14:08 | XMS_ITS | Encounter Summary ---
:1955 Author Organization [facility] [place] [address] Care Team Providers Name Role Phone Tatiana Martínez APRN Primary Care Provider Encounter Details Date Type Department Care Team Description 02/12/2019 Telephone Dermatology at [facility] Matthew Ramos MD [address] [facility] [place] [place] [address] [facility] [phone] [place], [place] [address] (Wo rk) Social History Tobacco Use Types Packs/Day Years Used Date Never Smoker Smokeless Tobacco: Never Used Sex Assigned at Date Recorded Not on file documented as of this encounter Miscellaneous Notes Telephone Encounter - Matthew Ramos - 02/12/2019 8:58 AM EST DERMATOLOGY TELEPHONE NOTE Aury Mcqueen 02/12/2019 [id number] Reason for call: Discuss biopsy results I called the patient this morning to discuss the results of her recent excisional biopsy, namely: DIAGNOSIS Skin, right bahai, skin excision: - ??Basal cell carcinoma, pigmented superficial and nodular type, extends to the peripheral specimenedge We discussed various treatment options for this lesion including WLE vs. ED&C vs. Mohs vs. Clinical monitoring. A joint decision was made to pursue WLE. Matthew Ramos MD PhD Dermatology Resident documented in this encounter Plan of Treatment Not on filedocumented as of this encounter Visit Diagnoses Not on filedocumented in this encounter Care Teams Gas Dispenser Relationship Specialty Start Date End Date Tatiana Martínez APRN PCP - General Family Medicine 02/02/19 [address] [facility] [address] [place] [address] documented as of this encounter
--- OUTSIDE RECORDS SUMMARY | 2021-09-06 14:08 | XMS_ITS | Encounter Summary ---
:1955 Author Organization [facility] [place] [address] Care Team Providers Name Role Phone Tatiana Martínez APRN Primary Care Provider Encounter Details Date Type Department Care Team Description 04/06/2019 Telephone Dermatology at [facility] Matthew Ramos MD [address] [place] [address] [facility] [phone] [place], [place] [address] (Wo rk) Social History Tobacco Use Types Packs/Day Years Used Date Never Smoker Smokeless Tobacco: Never Used Sex Assigned at Date Recorded Not on file documented as of this encounter Miscellaneous Notes Telephone Encounter - Hilaria Arita - 04/06/2019 9:24 AM EST Pt has been left messages on home phone, 02/12,02/26,03/10,03/19,03/25,04/02 and 04/06. Have not heard back. documented in this encounter Plan of Treatment Not on filedocumented as of this encounter Visit Diagnoses Not on filedocumented in this encounter Care Teams Supervisor Cell Efficiency Relationship Specialty Start Date End Date Tatiana Martínez APRN PCP - General Family Medicine 02/02/[address] [place], [place] [id number] documented as of this encounter
--- OUTSIDE RECORDS SUMMARY | 2021-09-06 14:08 | XMS_ITS | Encounter Summary ---
:1955 Author Organization [facility] [place] [address] Care Team Providers Name Role Phone Tatiana Martínez APRN Primary Care Provider Encounter Details Date Type Department Care Team Description 07/03/[address] [facility] Zhanna Alexis LPN [address] [place] [address] Social History Tobacco Use Types Packs/Day Years Used Date Never Smoker Smokeless Tobacco: Never Used Sex Assigned at Date Recorded Not on file documented as of this encounter Miscellaneous Notes Telephone Encounter - Zhanna Alexis LPN - 07/03/2021 2:13 PM EDT Spoke with Aury who finally did the Efudex treatment for her face. She finished 18 days and her skin was burning so, she couldn't stand it anymore. She has been applying Aquaphor. Explained that it would take abut 3 weeks before she looks back to normal. Wondered what she needs to do now. We usuallysee patients 3 months after treatment and that will coincide with her annual skin check. She will call for a FSE in september. documented in this encounter Plan of Treatment Not on filedocumented as of this encounter Visit Diagnoses Not on filedocumented in this encounter Care Teams Glove Turner And Former Relationship Specialty Start Date End Date Tatiana Martínez APRN PCP - General Family Medicine 02/02/[address] [place] [address] documented as of this encounter
--- OUTSIDE RECORDS SUMMARY | 2021-09-06 14:08 | XMS_ITS | Encounter Summary ---
:1955 Author Organization [facility] [place] [address] Care Team Providers Name Role Phone Tatiana Martínez APRN Primary Care Provider Reason for Visit Reason Comments Skin Lesion Consultation (Routine) - Specialty Diagnoses / Procedures Referred By Contact Refer red To Contact Dermatology Diagnoses Disorder of pigmentation Tatiana Martínez APRN [facility] Dermatology [address] [place] [phone] [place], [place] [address] Referral ID Status Reason Start Date Expiration Date Visits V isits Requested Authorized [id number] Consult, Test 12/07/2018 06/08/2019 6 6 & Treat PCP Updated and/or Approved Encounter Details Date Type Department Care Team Description 02/02/2019 [facility] Neoplasm of uncertain Road behavior of skin [address] [place] [address] [facility] [place], [place] [address] Social History Tobacco Use Types Packs/Day Years Used Date Never Smoker Smokeless Tobacco: Never Used Sex Assigned at Date Recorded Not on file documented as of this encounter Patient Instructions Patient InstructionsAbiel Alexis LPN - 02/02/2019 3:30 PM EST Treatment and Wound Care Instructions Your treatment today: You have had a excisional biopsy of your skin, which is a removal of tissue for examination under a microscope. This wound will heal without stitches. Allow 3-6 weeks for the wound to heal. If bleeding occurs, hold firm pressure against the wound for 15 minutes. If bleeding continues, calls the office or go to your local emergency room. Please allow 1-2 weeks for the biopsy results to return. Your physician or nurse will contact you with the results by phone or letter; follow-up will be discussed at that time. Wound Care Instructions: You will need to keep the dressing placed over the wound dry and intact for 24 hours. Afterwards, perform the following wound care daily: ?? Wash your hands before changing the dressing. ?? Remove the bandage and clean the area with mild soap and water, then gently pat the area dry. ?? Apply a small amount of Vaseline to the area, then cover the wound with a band-aid. Change your dressing daily until the wound is fully healed. ?? A small amount of yellow drainage is part of normal healing. The area might appear as a small depression with redness around the edge of the wound. This is normal. ?? Please contact the office you you notice any of the following signs of infection: increased tenderness, pain, drainage, or redness that becomes hot or hard around the wound. If you have further questions or concerns, please call the office at [phone]. If it is after 5PM, or a holiday or weekend, please call [phone] and ask for the Forming Fixer on-call. documented in this encounter Progress Notes Matthew Ramos R - 02/02/2019 3:30 PM EST Images from the original note were not included. DERMATOLOGY - NEW PATIENT NOTE Date of service: 02/02/2019 Aury Mcqueen : 1955, 63 y.o. Chief Complaint: Chief Complaint Patient presents with ??? Skin Lesion HPI: Aury Mcqueen is a 63 y.o. female referred by Tatiana Martínez with the following concerns: Here today for a skin lesion on the left quaker. It has been present 6 months. Asymptomatic. She hasnot noted any other new, growing, changing, bleeding, painful or otherwise symptomatic moles or other lesions. She has not noted any other changes in any preexisting lesions. Relevant Skin History: - Okay to leave detailed message with results? yes - Skin cancer (including type): yes - Right forearm:BCC -Center Back:BCC -Right Calf ?SCC Family History: Melanoma: no Relevant Social History: - Meds: No current outpatient medications on file. No current facility-administered medications for this visit. Allergies: No Known Allergies Review of Systems: - General: Feels well. - Skin: No other skin concerns. Examination: - Constitutional: Patient was alert, well-appearing and in no noticeable distress. - Skin: Skin examination of the scalp was normal with the exception of the findings listed below. - A female nurse was present and on standby during my examination. Diagnosis/Skin findings/Assessment/Plan: 1. Pigmented BCC vs MM 0.9 x 0.4 cm irregularly pigmented brown /red papule. - Extensive education given on the differential above. Discussed potential treatment options including Mohs vs. Excision depending on biopsy results. - Discussed sun protection techniques and the role of sun exposure in BCC and melanoma - Procedure: Excisional biopsy Discussed indications for procedure and expectations including risks and benefits. Verbal consent obtained. Skin prep with alcohol. Local anesthesia with 1% xylocaine, 1/100,000 epinephrine. A sample of the lesion was removed by shave technique to the level of the dermis and submitted to Pathology. Hemostasis obtained (AlCl and/or electrocautery). There were no complications; the pt. tolerated the procedure well. The wound was dressed. Post-procedure expectations, wound care and activity restrictions were reviewed. Follow-up based on pathology results. RTC: per pathology Note initiated by ABIEL ALEXIS LPN. I, ABIEL ALEXIS LPN, have performed the documentation for this encounter in the presence of and acting as a scribe for Matthew Ramos MD. I performed the services which were documented by the scribe, and I agree with the accuracy of the documentation in this encounter. Matthew Ramos MD Reviewed and signed by Matthew Ramos MD Resident in Dermatology [facility] Patient seen in conjunction with staff roving sizer: Matt George MD Section of Dermatology [facility] Samy George MD - 02/02/2019 3:30 PM EST I directly supervised Dr. Ramos during this office visit. Dr. Ramos presented the history and physical exam to me. I then saw and examined this patient with Dr. Ramos. We reviewed the history and pertinent details and I confirmed the physical findings. I agree with the details of the history and physical exam as documented in Dr. Ramos's note. Pigmented lesion. Looks like a BCC, not melanoma, pearly border, but will excise with a narrow margin to be sure, [place], excision may remove all of the BCC, may leave open if BCC, more involved if Melanoma. Discussed. SAMY GEORGE MD Staff Physician Samy George MD - 02/02/2019 3:30 PM EST I was present for the entire procedure and assisted. No immediate complications. Samy George MD - 02/02/2019 3:30 PM EST I directly supervised Dr. Ramos during this office visit. Dr. Ramos presented the history and physical exam to me. I then saw and examined this patient with Dr. Ramos. We reviewed the history and pertinent details and I confirmed the physical findings. I agree with the details of the history and physical exam as documented in Dr. Ramos's note. SAMY GEORGE MD Staff Physician documented in this encounter Miscellaneous Notes Addendum Note - Matthew Ramos - 02/02/2019 3:30 PM EST Addended by: MATTHEW RAMOS on: 02/10/2019 06:13 PM Modules accepted: Level of Service documented in this encounter Plan of Treatment Not on filedocumented as of this encounter Procedures Procedure Name Priority Date/Time Associated Diagnosis Comme nts SURGICAL PATHOLOGY Routine 02/02/2019 5:37 PM Res ults for this REPORT EST procedure are i n the results section. SPECIMEN TO Routine 02/02/2019 5:37 PM Neoplasm of Results f or this PATHOLOGY EST uncertain behavior procedure are in of skin the results section. documented in this encounter Results Surgical Pathology Report (02/02/2019 5:37 PM EST) Component Value Ref Test Analysis Performed At [facility] sifonr Range Method Time Signature Surgical [id number] ? Location: [facility] Report The signing pathologist has (i) examined the relevant preparation(s) for the MEMORIAL specimen(s) and (ii) rendered or confirmed the diagnosis(es) . HOSPITAL LABORATORY . ?Surgic al Pathology DIAGNOSIS Skin, right quaker, skin excision: - ??Basal cell carcinoma, pi gmented superficial and nodular type, extends to the peripheral specimen edge Electronically signed by: ??Pako ABAD, Luis Carlos Vang Verified: ??02/04/2019 ?Dermatopathologist Performed at: ??-[facility] [place], [place], [place] CLINICAL INFORMATION Specimen Submitted: A - Skin, right quaker, skin excision (1) Clinical History and Diagnosis: 0.9 x 0.4 cm irregularly pigmented brown/red papule; p igmented BCC versus MM SPECIMEN PROCESSING A - Labeled/Fixative: Patient demographics, formalin. Quantity/Size: ??Single, 1.0 x 0.6 x 0.3 cm. Tissue Description: Elliptic al excision of morales-pink, centrally hemorrhagic and eroded skin. Sections/Processing: Inked, quadrisected and entirely submitted in 2 cassettes as follows: ?A1: ??Tips. ?A2: ??Body. ??apb Specimen (Source) Anatomical Collection Method Collection Time Re ceived Time Location / / Volume Laterality 02/02/2019 5:37 PM EST Matthew Ramos MD PATHOLOGY/CYTOLOGY ORDERABLE S Performing Organization Address City/[facility]/[place] [address] Specimen to Pathology (02/02/2019 5:37 PM EST) Specimen Anatomical Collection Method Collection Time Receive d Time (Source) Location / / Volume Laterality AP Specimen 02/02/2019 5:37 PM 9 5:37 EST PM EST Narrative [facility] - 02/02/2019 5:37 PM EST Specimen requisition ordered. ??Separate Pathology report to follow Samy George MD PATHOLOGY/CYTOLOGY ORDERABLE S Performing Organization Address City/[facility]/ZIP [facility] [place] [address] documented in this encounter Visit Diagnoses Diagnosis Neoplasm of uncertain behavior of skin documented in this encounter Care Teams Dust Collector Operator Relationship Specialty Start Date End Date Tatiana Martínez APRN PCP - General Family Medicine 02/02/[address] [place] [address] documented as of this encounter
--- OUTSIDE RECORDS SUMMARY | 2021-09-06 14:08 | XMS_ITS | Encounter Summary ---
:1955 Author Organization Address [address] [place] [address] Care Team Providers Name Role Phone Zoraida Iyer MD Primary Care Provider Encounter Details Date Type Department Care Team Description 12/10/2011 Results Only [facility]- KEVAN Edgar Lew, MANAGER LAND [phone] [address] [place] [address] (Wo rk) Social History Tobacco Use Types Packs/Day Years Used Date Never Assessed Sex Assigned at Date Recorded Not on file documented as of this encounter Plan of Treatment Not on filedocumented as of this encounter Procedures Procedure Name Priority Date/Time Associated Diagnosis Comme nts PAP TEST- RESULT Routine 12/10/2011 0:00 EDT Resu lts for this ONLY procedure are i n the results section. documented in this encounter Results PAP TEST- RESULT ONLY (12/10/2011 0:00 EDT) Pathology Report: CYTOPATHOLOGY REPORT [facility] Reports generated via electronic interface contain mark ginal data; however they are lacking the format of the original re port. Caution should be taken when reading/interpreting unfo rmatted reports. Name: ? RIAN LOYD ? Accession #: ? [id number] : ? 1955 (Age: 55) ??F ?Collect Date: ? 11/25 Location: ? [facility] ? Receive Date : ? 12/12/2011 Provider: ?EDGAR LEW BIOFUELS PRODUCTION MANAGER Copy to: ? Specimen/Source: ? Pap Test, Cervix/Endocervix, ThinPrep Imaging System with manual evaluation Last Menstrual Period: ? 2007 Other: ? Additional clinical information: FORTUNE TELLER Clinical/Treatmen t History - Metrogel/ ? SPECIMEN ADEQUACY ? Satisfactory for Evaluation - transformation zone component present GENERAL CATEGORIZATION ? Negative for Intraepithelial Lesion or Malignan cy INTERPRETATION ? Shift in lilia present suggestive of bacterial vaginosis. ? Document reviewed and electronically signed by: ? SRIDHAR Lombardi(ASCP)(IAC) ? Report Date: ??12/18/2011 13:48 End of Report Specimen Performing Organization Address City/State/ZIP Code Phon e Number [facility] [address] [place] [address] [facility] [address] [place] [address] documented in this encounter Visit Diagnoses Not on filedocumented in this encounter Care Teams Weaving Teacher Relationship Specialty Start Date End Date Zoraida Iyer MD PCP - General 03/28/11 08/29/[address] [place] [id number] documented as of this encounter
--- OUTSIDE RECORDS SUMMARY | 2021-09-06 14:08 | XMS_ITS | Encounter Summary ---
:1955 Author Organization [facility] Address [address] [place] [address] Care Team Providers Name Role Phone Zoraida Iyer MD Primary Care Provider Encounter Details Date Type Department Care Team Description 11/06/2011 Results Only [facility]- KEVAN Edgar Arias, FIRESETTER [phone] [address] [place] [address] (Wo rk) Social History Tobacco Use Types Packs/Day Years Used Date Never Assessed Sex Assigned at Date Recorded Not on file documented as of this encounter Plan of Treatment Not on filedocumented as of this encounter Procedures Procedure Name Priority Date/Time Associated Diagnosis Comme nts PAP TEST- RESULT Routine 11/06/2011 0:00 EDT Resu lts for this ONLY procedure are i n the results section. documented in this encounter Results PAP TEST- RESULT ONLY (11/06/2011 0:00 EDT) Pathology Report: CYTOPATHOLOGY REPORT [facility] Reports generated via electronic interface contain amrk ginal data; however they are lacking the format of the original re port. Caution should be taken when reading/interpreting unfo rmatted reports. Name: ? RIAN LOYD ? Accession #: ? [id number] : ? 1955 (Age: 55) ??F ?Collect Date: ? 10/26 Location: ? [facility] ? Receive Date : ? 11/08/2011 Provider: ?PATODD Neisha VIPIN CLEANING ASSOCIATE Copy to: ? Specimen/Source: ? Pap Test, Cervix/Endocervix, ThinPrep Imaging System with manual evaluation Last Menstrual Period: ? SPECIMEN ADEQUACY ? Unsatisfactory for Evaluation - obscuring contamination, p ossibly lubricant, which precludes interpretation of 75% or more of the epithelial cells GENERAL CATEGORIZATION ? Specimen processed and examined, but unsatisfac tory for evaluation of epithelial abnormality. Recommend repeat Pap test or further follow up, as cli nically indicated. ? Document reviewed and electronically signed by: ? SRIDHAR Contreras(ASCP) ? Report Date: ??11/20/2011 07:32 End of Report Specimen Performing Organization Address City/State/ZIP Code Phon e Number [facility] [address] [place] [address] SERVICES [facility] [address] [place] [address] documented in this encounter Visit Diagnoses Not on filedocumented in this encounter Care Teams Riverboat Captain Relationship Specialty Start Date End Date Zoraida Iyer MD PCP - General 03/28/11 08/29/14 [address] [place] [address] documented as of this encounter
--- OUTSIDE RECORDS SUMMARY | 2021-09-06 14:08 | XMS_ITS | Clinical Summary ---
:1955 Author Organization [facility] Address [address] [place] [address] Care Team Providers Name Role Phone Rafal Logan DO Primary Care Provider Social History Tobacco Use Types Packs/Day Years Used Date Never Assessed Sex Assigned at Date Recorded Not on file Plan of Treatment Health Maintenance Due Date Last Done Comments Hepatitis C Screen 1955 COVID-19 Vaccine (1) 1958 Fall Risk Screening 2018 Advance Directives For more information, please contact: [phone] Documents on File Type Date Recorded Patient [address] Magistrate Explanati on Advance Directives and Living Will Power of Assisted Living Coordinator Care Teams Section Leader And Machine Setter Relationship Specialty Start Date End Date Rafal Logan, PCP - General 08/30/14 [address] [place] [address]
--- OUTSIDE RECORDS SUMMARY | 2021-09-06 14:08 | XMS_ITS | Clinical Summary ---
:1955 Author Organization [facility] [address] Care Team Providers Name Role Phone Tatiana Martínez APRN Primary Care Provider Allergies No known active allergies Medications Medication Sig Dispensed Refills Start Date End Date Status fluorouraciL (EFUDEX) 5 In the fall, 40 g 0 10/03/2020 Active % CreamIndications: apply a thin Actinic keratoses layer to the face twice daily for 3 weeks. Then stop. Active Problems Problem Noted Date History of basal cell carcinoma 05/02/2011 Seborrheic keratosis 05/02/2011 Nevus 05/02/2011 Encounters Date Type Specialty Care Team Description 07/03/2021 Telephone Dermatology Zhanna Alexis LPN from Last 3 Months Social History Tobacco Use Types Packs/Day Years Used Date Never Smoker Smokeless Tobacco: Never Used Sex Assigned at Date Recorded Not on file Plan of Treatment Health Maintenance Due Date Last Done Comments Covid-19 Vaccine (#1) 1960 Hepatitis C Screening 12/18/1971 Tdap adult 1972 Tetanus vaccine 1972 Breast Cancer Share Decision Needed 1993 Colonoscopy 1998 Breast Cancer screening 12/18/2003 Zoster vaccine (1 of 2) 12/18/2003 Advance Directive 2008 Bone Density Scan 2018 Pneumoccocal Vaccine: 65+ (1 - PCV) 2018 Influenza (Flu) vaccine (1 of 1 - Influenza standard 10/26/2021 series) Insurance Payer Benefit Plan / Subscriber ID Effective Phone Address T e Group Dates [employer] BCBS [id number] 2018-Pres [address] [place] [address] [place] [address] MEDICARE MEDICARE PART [id number] 2018-Pres [phone] [place] [id number] Care Teams Ekg Manager Relationship Specialty Start Date End Date Tatiana Martínez APRN PCP - General Family Medicine 02/02/[address] [place] [address]
--- OUTSIDE RECORDS SUMMARY | 2021-09-06 14:08 | XMS_ITS | Encounter Summary ---
:1955 Author Organization [facility] Address [address] [place] [address] Care Team Providers Name Role Phone Tatiana Martínez DISTRIBUTION DRIVER Primary Care Provider Reason for Visit Reason Comments Skin Check Encounter Details Date Type Department Care Team Description 10/03/2020 Office Visit Dermatology at [facility] A ctinic keratoses; Carlee Villagran; [address] [facility] Seborrheic keratoses; [place] [address] [address] [address] History of basal cell carcinoma (BCC); [phone] [facility] Plunkett angioma; RD-DERMATOLOGY Lentigines [place], [place] [address] Social History Tobacco Use Types Packs/Day Years Used Date Never Smoker Smokeless Tobacco: Never Used Sex Assigned at Date Recorded Not on file documented as of this encounter Progress Notes Samy Steven MD - 10/03/2020 1:00 PM EDT Images from the original note were not included. DEPARTMENT OF DERMATOLOGY Medical Dermatology Clinic Provider: Samy Steven MD Patient's preferred name Aury Preferred contact method for results phone Detailed phone message OK? yes Are there any other people with whom we may discuss your care? PAST MEDICAL HISTORY If no, type N. If yes, type date, location, treatment Melanoma N Dysplastic nevi N SCC BCC 02/02/19: Left synagogue, excisional biopsy - clinically monitoring Right forearm, center of back, right calf - per patient AKs UV Exposure & Protection + history of blistering sunburn Other relevant past medical history (i.e. eczema, psoriasis, birthmarks, immunosuppression) FAMILY HISTORY If yes, details Melanoma N NMSC N Other relevant family history N SOCIAL HISTORY Occupation: Hobbies: Other: PRE-PROCEDURE SCREENING If no, type N. If yes, include details below Allergy to lidocaine, epinephrine, Dermabond, chlorhexidine, or adhesives: Bleeding disorder or blood thinners: Implanted devices (Pacemaker, defibrillator, deep brain stimulator, cochlear implant): History of Present Illness: Aury Mcqueen is a 64 y.o. year old. Patient returns to clinic today for a full skin exam. She has a biopsy- proven BCC on her left synagogue that was biopsied 02/02/19 thathas not been treated yet. The plan was for excision; however, patient elected to defer the treatmentduring covid. She notes that the lesion is asymptomatic and can no longer find it. Other concerns for today's exam include: - she has a concerning lesion on her forehead that is rough and brown but otherwise asymptomatic. - new redness on her cheeks, flares with sunlight. Does not experience acne like bumps throughout. Never treated. Last visit at [facility] Derm: 02/02/2019 Last visit with this provider: Visit date not found Medications: Reviewed in eD-H Allergies: Reviewed in eD-H Skin Examination: Full skin examination: Patient asked to undress to their comfort level. Verbalized that the provider's preference is that patient removal all clothing and that the provider will not examine areas patient elects to keep covered. Examination of the scalp, hair, head, face, ears, neck, chest, axillae, abdomen, back, buttocks, and upper and lower extremities.Genitalia was not examined. Assessment/Plan Clinically Resolved Basal Cell Carcinoma - on the left synagogue there is well healed scar with no evidence of recurrence - s/p excisional biopsy 02/02/19 with extension to the peripheral specimen edge. Recommendation was for excision; however, this was deferred due to covid-19. - NER on exam today - Discussed options of clinical monitoring, re-biopsy, vs treatment with excision/mohs. - After reviewing risks/benefits, patient elects to proceed with clinical observation. - Instructed patient to monitor the area and return to clinic for any changes. Actinic Keratoses - 0.2-0.3cm scaly irregular pink papule(s) located on face - Spoke to patient about treatment options, including cryotherapy and field treatments. Joint decision to pursue efudex field treatment in the fall - Rx: 5-fluorouracil (Efudex) 5% cream: apply twice daily to the face for three weeks. Start in the fall. - Reviewed expectations and typical reaction to treatment. Redness, crusting, swelling and tenderness of treated skin expected to develop during treatment, and is a sign that the medication is working.Warned not to get in eyes. Discussed using medication as tolerated and stopping use for a day or two if inflammation becomes too intense or patient experiences discomfort. For any severe discomfort or side effects, patient was encouraged to call for further advice and possible evaluation. Seborrheic Keratoses - stuck on, waxy papules on the face, trunk, and extremities - Benign. No treatment needed. Plunkett Angioma(s) - 0.2-0.4cm bright red, well-demarcated papule(s). - Benign. No treatment needed. Solar Lentigines - Reassurance provided. - Sun avoidance, protective clothing and the use of SPF 30 sunscreen is advised. Observe closely forskin changes and call if such occurs. Rosacea - on the central face, there are light red patches with intervening telangiectasias. No acnelike inflammatory papules or conjunctival injection. - Etiology, chronic relapsing/remitting course and treatment options discussed including PDL/IPL laser. - Patient primarily with erythematotelangiectatic rosacea - Avoidance of triggers recommended, such as hot beverages, spicy foods, alcohol - Photoprotection with daily sunscreen recommended - Patient will consider laser therapy after treatment with 5-FU History of BCC - Well healed scar(s) as noted above - NER; will continue to clinically monitor Photo was taken and charted with patient's verbal consent. Other items to document in the assessment/plan if relevant ??? N/A RTC: 1 year FSE and in the fall 2020 for efudex follow up []Note routed to corporation secretary [x]Recall has been placed in scheduling system []Appointment scheduled at checkout Scribe attestation: MIYA Subramanian has performed the documentation for this encounter in the presence of and acting as a scribe for Samy Steven MD I performed the above scribed service and agree with the accuracy of the documentation in this encounter. Reviewed and signed by: Samy Steven MD Dermatology [facility] Patient seen and evaluated with staff buffet server: Elodia Martinez MD Dermatology [facility] Elodia Martinez MD - 10/03/2020 1:00 PM EDT I directly supervised Dr. Steven during this office visit. Dr. Steven presented the history and physical exam to me. I then saw and examined this patient with Dr. Steven . We reviewed the history and pertinent details and I confirmed the physical findings. I agree with the details of the history and physical exam as documented in Dr. Steven's note. Elodia Martinez MD Staff Physician documented in this encounter Plan of Treatment Not on filedocumented as of this encounter Visit Diagnoses Diagnosis Actinic keratoses Actinic keratosis Rosacea Seborrheic keratoses History of basal cell carcinoma (BCC) Plunkett angioma Nevus, non-neoplastic Lentigines Other dyschromia documented in this encounter Care Teams Pi/Senior Research Associate Relationship Specialty Start Date End Date Tatiana Martínez APRN PCP - General Family Medicine 02/02/[address] [place] [address] [address] [place] [address] documented as of this encounter
--- OUTSIDE RECORDS SUMMARY | 2021-09-06 14:08 | XMS_ITS | Encounter Summary ---
:1955 Author Organization [facility] Address [address] [place] [address] Care Team Providers Name Role Phone Zoraida Iyer MD Primary Care Provider Encounter Details Date Type Department Care Team Description 08/24/2014 Results Only [facility]- [facility] Ricardo Tan, DO [address] [facility] [address] [place] [address] (Wo rk) Social History Tobacco Use Types Packs/Day Years Used Date Never Assessed Sex Assigned at Date Recorded Not on file documented as of this encounter Plan of Treatment Not on filedocumented as of this encounter Procedures Procedure Name Priority Date/Time Associated Diagnosis Comme [facility] SURGICAL PATHOLOGY Routine 08/24/2014 10:42 Resul ts for this EDT procedure are i n the results section. documented in this encounter Results SURGICAL PATHOLOGY (08/24/2014 10:42 EDT) Pathology Report: SURGICAL PATHOLOGY REPORT [facility] Reports generated via electronic interface contain mark ginal data; LABORATORY however they are lacking the format of the original re port. SERVICES Caution should be taken when reading/interpreting unfo rmatted reports. Name: ? RIAN LOYD ? Accession #: ? [id number] ? : ? 1955 (Age: 58) ??F ? Collect Date: ? 08/24/2014 ? Location: ? [facility] ? Receive Date: ? 5 ? Provider: RICARDO TAN DO Copy to: CLAUDETTE MCKEON DO ? Final Pathologic Diagnosis: SKIN OF CALF, RIGHT, EXCISION: - Basal cell carcinoma, superficial and nodular type. ??See comment. - Peripheral margin POSITIVE for superficial basal ce ll carcinoma. ?? Comment: The excision consists of basal cell carcinoma with nod ular and superficial growth patterns. ??In two of the sections from the karon tral portion of the excision, superficial basal cell carcinoma is transected at the peripheral inked margin. ??(Dr. Siddiqi)/osmani Microscopic Description: Emanating from the epidermis and present within the de rmis are irregularly shaped islands of atypical b frank cells. The basal cells have scant cytoplasm and round dark nuclei. ??Mitotic figures and apoptotic bod ies are evident. ??The nuclei at the periphery of the islands have a palisade d arrangement. ??The islands are associated with a fibromyxoid stroma and there is cleft formation between some of the islands and stroma. ??(Dr. Siddiqi)/reji johnson Document reviewed and electronically signed by: DAVID SIDDIQI MD Report ??Date: 08/26/2014 13:43 By the signature above, the attending physician certif ies that he/she has personally conducted a gross and/or microscopic examin ation of the described specimens and rendered or confirmed the above diagnosi s. Specimen(s) Received: Skin lesion right calf Clinical History: Right leg lesion ? Gross Description: ? Received in formalin labelled with proper patient identification (initials H, N) and skin lesion is an unoriented ellipti zaid excision of pink-morales skin (1.7 x 0.9 cm and is excised to a depth of 0.4 cm). There is a central morales-red, slightly depressed lesion that measures 0.7 x 0.5 cm. The margins are inked blue. The specimen is serially sectioned and entirely submitted as 1-3 central sections and 4 tips, reverse en face. Irving Ortiz 08/25/2014 11:37 AM End of Report Specimen Performing Organization Address City/State/ZIP Code Phon e Number [facility] [address] [place] [address] SERVICES documented in this encounter Visit Diagnoses Not on filedocumented in this encounter Care Teams Appraiser Real Estate Relationship Specialty Start Date End Date Zoraida Iyer MD PCP - General 03/28/11 08/29/[address] [place] [id number] documented as of this encounter
--- OUTSIDE RECORDS SUMMARY | 2021-09-06 14:08 | XMS_ITS | Encounter Summary ---
:1955 Author Organization [facility] [place] [address] Care Team Providers Name Role Phone Tatiana Martínez APRN Primary Care Provider Encounter Details Date Type Department Care Team Description 03/14/2021 Telephone Dermatology at [facility] Shalini Castellanos [address] [place] [address] Social History Tobacco Use Types Packs/Day Years Used Date Never Smoker Smokeless Tobacco: Never Used Sex Assigned at Date Recorded Not on file documented as of this encounter Miscellaneous Notes Telephone Encounter - Shalini Castellanos - 03/14/2021 2:32 PM EST Efudex Letter sent in mail today! =) documented in this encounter Plan of Treatment Not on filedocumented as of this encounter Visit Diagnoses Not on filedocumented in this encounter Care Teams Brush Operator Relationship Specialty Start Date End Date Tatiana Martínez APRN PCP - General Family Medicine 02/02/[address] [place], [place] [id number] documented as of this encounter
--- OUTSIDE RECORDS SUMMARY | 2021-09-06 14:08 | XMS_ITS | Encounter Summary ---
:1955 Author Organization [facility] [place] [address] Care Team Providers Name Role Phone Tatiana Martínez APRN Primary Care Provider Encounter Details Date Type Department Care Team Description 03/14/2021 Telephone Dermatology at [facility] Shlaini Castellanos [address] [place] [address] Social History Tobacco Use Types Packs/Day Years Used Date Never Smoker Smokeless Tobacco: Never Used Sex Assigned at Date Recorded Not on file documented as of this encounter Miscellaneous Notes Telephone Encounter - Shalini Castellanos - 03/14/2021 12:00 PM EST Auryrajendra Mcqueen called looking for CLEARLY WRITTEN instructions for how to use 5-FU cream that was prescribed to her back on 10/03/20. The instructions were not clear and the prescription from the pharmacy was even more confusing. documented in this encounter Plan of Treatment Not on filedocumented as of this encounter Visit Diagnoses Not on filedocumented in this encounter Care Teams Swine Extension Field Specialist Relationship Specialty Start Date End Date Tatiana Martínez APRN PCP - General Family Medicine 02/02/[address] [place] [address] documented as of this encounter
[2021-09-06 14:15] LABS: COVID-19 PCR Negative (Negative)
--- NOTE | 2021-09-06 14:48 | ANES.PREOP_ITS ---
General Info Date of Service Date Performed: 09/06/21 Height: 5 ft 8 in Weight: 62.142 kg Body Mass Index (BMI): 20.8 Surgical Procedure: Operation Date: 09/06/21 16:40 Proposed Procedure Side Surgeon p Appendectomy Laparoscopic Antonino Tinoco MD Meds Allergies and Home Medications Allergies Allergy/AdvReac Type Severity Reaction Status Date / Time No Known Allergies Allergy Unverified 09/06/21 11:01 Home Medication Medication Instructions Recorded calcium carb and lactate 200 2 tab PO DAILY 11/27/18 mg-vitamin D3 6.25 mcg (250 unit) tablet naproxen sodium 220 mg capsule 220 mg PO PRN PRN 03/17/21 (Aleve) PFSH Active Problems Active Problems: Problem Status Onset Code Acute appendicitis K35.80 Hyperlipidemia E78.5 Osteopenia M85.80 Medical History Medical History (Updated 09/06/21 @ 13:56 by CLEMENTINE Gardner) Hepatitis C virus infection cured after antiviral drug therapy (~2001) Interferon/Ribaviron Sigmoid diverticulosis Surgical History Surgical History Hx of colonoscopy (03/20/19) S/P tonsillectomy (~1957) Tobacco Smoking/Tobacco Use Status: Former Tobacco Use Second hand exposure: Yes Alcohol Alcohol Intake: former Year quit: 1990 Substance Use Substance use: Never Substance use type: does not use Prental History History 2 Para 0 Hx # Term Pregnancies Multiple births Hx # Pregnancies Ectopic pregnancies AB induced Hx Number of Living Children AB spontaneous Vital Signs and Lab Results Vital Signs Most Recent Vital Signs in EMR: Most Recent Vital Signs Temp Pulse Resp BP Pulse Ox 37 C 71 16 140/76 96 09/06/21 10:55 09/06/21 10:55 09/06/21 10:55 09/06/21 10:55 09/06/21 10:55 Lab Results Result Diagrams: 09/06/21 11:30 09/06/21 11:30 Blood Type / Crossmatch: No Data to Display Complete Blood Count: White Blood Count 5.80 10^3/uL (4.4-10.8) 09/06/21 11:30 Red Blood Count 4.47 10^6/uL (3.93-5.22) 09/06/21 11:30 Hemoglobin 13.8 g/dL (11.2-15.7) 09/06/21 11:30 Hematocrit 41.0 % (36.0-46.0) 09/06/21 11:30 Platelet Count 161 10^3/uL (130-400) 09/06/21 11:30 Complete Metabolic Panel: Sodium Level 142 mmol/L (136-145) 09/06/21 11:30 Potassium Level 4.1 mmol/L (3.5-5.1) 09/06/21 11:30 Chloride Level 107 mmol/L (98-107) 09/06/21 11:30 Carbon Dioxide Level 29.1 mmol/L (21.0-32.0) 09/06/21 11:30 Blood Urea Nitrogen 23 mg/dL (7-18) H 09/06/21 11:30 Creatinine 0.9 mg/dL (0.55-1.02) 09/06/21 11:30 Estimated GFR/1.73 m2 >= 60.00 (mL/min/1.73m2) 09/06/21 11:30 Calcium Level 8.5 mg/dL (8.5-10.1) 09/06/21 11:30 Albumin 3.5 g/dL (3.4-5.0) 09/06/21 11:30 Glucose Level 112 mg/dL (74-106) H 09/06/21 11:30 Liver Function Panel: Alanine Aminotransferase (ALT/SGPT) 18 U/L (14-59) 09/06/21 11: 30 Aspartate Amino Transf (AST/SGOT) 12 U/L (15-37) L 09/06/21 11: 30 Coagulation Panel: No Data to Display Cardiac Panel: No Data to Display Arterial Blood Gas: No Data to Display Venous Blood Gas: No Data to Display Pancreas Panel: Lipase 108 U/L (73-393) 09/06/21 11:30 Thyroid Panel: No Data to Display Infectious Disease: Coronavirus (COVID-19)(PCR) Negative (Negative) 09/06/21 13:20 Coronavirus 2019 Source Nasal/Nares 09/06/21 13:20 Blood Cultures: No Data to Display Toxicology Panel: No Data to Display Anesthesia Assessment and Plan Anesthesia History Personal History: No History of Anesthesia Complications Family History: No Family History of Anesthesia Complications Exercise Tolerance Exercise Tolerance: Metabolic Equivalents>4 Pertinent Negatives Pertinent Negatives: No Symptoms of GERD, No Major Cardiovascular Symptoms or Complaints, No Major Pulmonary Symptoms or Complaints and No History of CVA/TIA Cardiac & Pulmonary Exam Cardiac Exam: Normal S1/S2 Heart Sounds Pulmonary Exam: Clear Bilateral Breath Sounds Implantable Cardiac Device Does patient have a Pacemaker or an ICD?: No Airway Exam Known Difficult Airway: No Mallampati Class: 2 Mouth Opening: Normal (> 3cm) Thyromental Distance: Greater than 3 cm Neck Range of Motion: Full ROM Neck Circumference: Normal Teeth Condition: Normal Dentition ASA Classification ASA Score: ASA 2 Emergency Case?: No NPO Status NPO Status: NPO Clears >2 hours, Solids >8 hours (Black and toast with peanut butter at 0730) Anesthesia Plan Resuscitation Status: Full Code Anesthesia Technique: General Anesthesia Airway Planned: Endotracheal Tube Monitors Used: Standard Monitors
[2021-09-06] MEDS: Bupivacaine 0.25% Pres-Free 30 ML VIAL (17:28)
[2021-09-06] MEDS: Normal Saline 1,000 ML 30 ML IV (17:32)
--- NOTE | 2021-09-06 17:51 | APP_PTH ---
PATIENT: Aury Mcqueen LOC: U#:[id number] AGE/SX: 65/F ROOM: [id number] RE09/06/[address]: Antonino Tinoco MD : 1955 BED: A DIS: 09/07/2021 SPEC #: [id number] RECD: 09/06/21 18:13 STATUS: RYLEY REQ #: [id number] DALLIN: 09/06/21 17:[address]: Antonino Tinoco DEPT: Surgical Specimen RECD BY: Zhanna Davila ENTERED: 09/06/21 18:13 SP TYPE: Appendix OTHR DR: Hortensia Roe Tissues: 1 - APPENDIX NOT INCIDENTAL Procedures: GROSS AND MICRO LEVEL 3 Comments: [id number]
--- NOTE | 2021-09-06 18:28 | ROE_ITS ---
Date of service: 09/06/21 Time of Service: 18:28 Operative Note Operative Note DATE OF PROCEDURE: 09/06/21 PRE-OP DIAGNOSIS: Acute appendicitis POST-OP DIAGNOSIS: same PROCEDURE: Laparoscopic appendectomy SURGEON: Antonino Tinoco HOTEL OR MOTEL CLEANING SUPERVISOR: Ena Hsieh Refer to Anesthesia Record ESTIMATED BLOOD LOSS: 50 PATHOLOGY: other (appendix) COMPLICATIONS: None Patient was transported to: PACU Patient's condition: stable Indications: Aury Mcqueen is a 65-year-old woman with acute onset of right-sided back and flank pain. She went to the emergency department and underwent a CAT scan of the abdomen and pelvis that demonstrated acute appendicitis. Findings: Acute appendicitis Procedure Description: We started by prepping and draping the anterior abdominal wall in the usual fashion. Next, I made a periumbilical incision and dissected down to the fasc ia. Using Bg clamps, I grasped the fascia and elevated up into the operative field. I incised it sharply and entered the peritoneal cavity under direct vision. Next, I fixed a 10 mm operating port in the umbilical position with 0 Vicryl suture. Next, I inserted a 5 mm 0 degree laparoscope into the peritoneal cavity. There was mild inflammation in the right lower quadrant. Next, under the vision of the laparoscope, I inserted a 5 mm port in the left lower quadrant followed by a 5 mm port in the suprapubic position. I then moved the scope to the left lower quadrant and used bowel graspers to better expose the right lower quadrant. Identified the terminal ileum and retracted it slightly cephalad exposing the base of the cecum. Here I was able to identify the base of the appendix which had a slightly retrocecal course. We used some Trendelenburg positioning as well as left side down to gain better exposure. I then divided the mesoappendix with sequential firings of the LigaSure device. Once this was completed, I divided the appendix off the base of the cecum with a single fire MITZI stapler. I placed the appendix into an Endo Catch bag and removed it via the umbilical port site. I examined the staple line which was clean and had no evidence of bleeding. Next, I removed the ports under the vision the laparoscope. I closed the midline umbilical fascia with interrupted Vicryl sutures. I irrigated the skin and soft tissues. There was some bleeding from the suprapubic port site skin and subcutaneous fat that I was able to control with interrupted Vicryl stitch. Next, I closed the skin and applied bandages prior to transferring the patient to the recovery unit.
--- NOTE | 2021-09-06 19:50 | W.ANESPOSTOP ---
Postoperative Evaluation Date, Time and Location Date Performed: 09/06/21 Time Performed: : Patient Location: PACU Vital Signs Most Recent Imported Vital Signs: Most Recent Vital Signs Temp Pulse Resp BP Pulse Ox 35.9 C L 60 16 151/83 H 94 09/06/21 19:35 09/06/21 19:35 09/06/21 19:35 09/06/21 19:35 09/06/21 19:35 Pain Score Most Recent Pain Score: Most Recent Pain Score Pain Level 0 09/06/21 19:35 Assessment Mental Status: Awake (Alert & Oriented to Patient Baseline) Airway and Respiratory Function: Patent airway with normal (patient baseline) respiratory exam Cardiovascular Function: Hemodynamically Stable Hydration Status: Adequately Hydrated Nausea & Vomiting: No Nausea or Vomiting Pain: Pt. Denies Any Pain Peripheral Nerve Block: Patient did not receive a nerve block
[2021-09-06] MEDS: Acetaminophen 500 MG TAB 1000 MG PO (19:51)
[2021-09-06] MEDS: Enoxaparin 40 MG/0.4 ML SYR SC (19:51)
[2021-09-06] MEDS: Lactated Ringers 1,000 ML 75 ML IV (19:52)
[2021-09-06] MEDS: Docusate Sodium 100 MG CAP PO (19:52)
[2021-09-07] MEDS: Lactated Ringers 1,000 ML 75 ML IV (06:31)
[2021-09-07 07:13] VITALS: BP 130/74; PULSE 59; RESP 16; TEMP 36.4; O2SAT 94
[2021-09-07] MEDS: Docusate Sodium 100 MG CAP PO ×2 (08:07→13:59)
--- NOTE | 2021-09-07 09:33 | PGE_ITS ---
Date of Service Date of service: 09/07/21 Time of Service: 09:33 Assessment and Plan Assessment and plan (1) Acute appendicitis: Status: Acute Assessment and plan: Postop day #1 status post laparoscopic appendectomy No leukocytosis Pain is well controlled with mild periumbilical pain Tolerating a regular diet Ambulating and transferring independently within her room. Will be able to discharge home later today. pt seen and examined. Agree w/ above see d/c prders Subjective Subjective Interval history since last seen: Patient reports that she is feeling well this morning. She denies any nausea or vomiting. She tolerated a regular breakfast tray without any difficulties. She expressed that she has some discomfort around her periumbilical incision site. Denies any fevers, chills or night sweats. Exam Const General: cooperative, healthy appearing and comfortable Orientation: alert and oriented x3 Resp Effort & Inspection: normal respiratory effort, no audible wheezes and no cough GI Inspection: normal to inspection Palpation: soft, no guarding and tender periumbilically Objective Last Vital Signs Temp 36.4 C L 09/07/21 07:13 Pulse 59 L 09/07/21 07:13 Resp 16 09/07/21 07:13 BP 130/74 09/07/21 07:13 Pulse Ox 94 09/07/21 07:13 Laboratory Results - last 24 hr 09/06/21 09/06/21 09/06/21 11:30 11:30 11:50 WBC 5.80 RBC 4.47 Hgb 13.8 Hct 41.0 MCV 92 MCH 30.9 MCHC 33.7 RDW 12.3 Plt Count 161 MPV 11.0 Immature Gran % 0.2 Neutrophils % 81.3 Lymphocytes % 14.0 Monocytes % 4.0 Eosinophils % 0.2 Basophils % 0.3 Nucleated RBC % 0.0 Absolute Neutrophils 4.72 Absolute Lymphocytes 0.81 L Absolute Monocytes 0.23 Absolute Eosinophils 0.01 Absolute Basophils 0.02 Sodium 142 Potassium 4.1 Chloride 107 Carbon Dioxide 29.1 Anion Gap 5.9 BUN 23 H Creatinine 0.9 Estimated GFR/1.73 m2 >= 60.00 Glucose 112 H Calcium 8.5 Total Bilirubin 0.5 AST 12 L ALT 18 Alkaline Phosphatase 51 Total Protein 6.1 L Albumin 3.5 Lipase 108 Urine Color Yellow Urine Clarity Clear Urine pH 5.5 Ur Specific [place] 1.025 Urine Protein Negative Urine Ketones Negative Urine Blood Moderate H Urine Nitrite Negative Urine Bilirubin Negative Urine Urobilinogen 0.2 Ur Leukocyte Esterase Negative Urine RBC 20-50 H Urine WBC Negative Ur Epithelial Cells Rare Urine Crystals Negative Urine Bacteria Negative Urine Casts Negative Urine Mucus Negative Ur Culture Indicated? No Urine Glucose Negative COVID-19 Source SARS-CoV-2 (PCR) 09/06/21 13:20 WBC RBC Hgb Hct MCV MCH MCHC RDW Plt Count MPV Immature Gran % Neutrophils % Lymphocytes % Monocytes % Eosinophils % Basophils % Nucleated RBC % Absolute Neutrophils Absolute Lymphocytes Absolute Monocytes Absolute Eosinophils Absolute Basophils Sodium Potassium Chloride Carbon Dioxide Anion Gap BUN Creatinine Estimated GFR/1.73 m2 Glucose Calcium Total Bilirubin AST ALT Alkaline Phosphatase Total Protein Albumin Lipase Urine Color Urine Clarity Urine pH Ur Specific [place] Urine Protein Urine Ketones Urine Blood Urine Nitrite Urine Bilirubin Urine Urobilinogen Ur Leukocyte Esterase Urine RBC Urine WBC Ur Epithelial Cells Urine Crystals Urine Bacteria Urine Casts Urine Mucus Ur Culture Indicated? Urine Glucose COVID-19 Source Nasal/Nares SARS-CoV-2 (PCR) Negative
--- NOTE | 2021-09-07 09:36 | W.PM.DS.N ---
DS: Diagnosis Discharge Diagnosis (1) Acute appendicitis: Status: Acute Discharge Plan Disposition Patient Disposition: HOME Condition: Stable Discharge Details Reason For Visit: Appendicitis Admit Date/Time: 09/06/21 18:13 Admit Provider: Antonino Tinoco Attending Provider: Antonino Tinoco Primary Care Provider: Hortensia Roe Hospital Course Hospital Course: 65 y/o female with a history of hyperlipidemia presented to the ER via EMS for further evaluation of severe right flank pain. She states that she woke up in the night and this morning with mild right flank pain and diarrhea. Which progressed early this morning. She states her pain fully resolved after having tylenol from EMS. CT scan showed ?Findings consistent with acute retrocecal appendicitis.? No evidence of rupture at this time and Right renal calculi incidentally noted. Patient underwent laparoscopic appendectomy with Dr. Tinoco. Postoperatively patient did well with her pain well managed and no nausea or vomiting. This morning she is tolerating a regular diet without any difficulties. Discharge home Pain management with Tylenol and ibuprofen Postoperative follow-up with Dr. Tinoco in 2 weeks Home Meds and New Rx's Prescriptions: New tramadol [Ultram] 50 mg tablet 50 mg PO Q4H PRN PRNQty: 10 0RF Continued naproxen sodium [Aleve] 220 mg capsule 220 mg PO PRN PRN calcium carb,lactat-vitamin D3 200 mg calcium -250 unit tablet 2 tab PO DAILY Discharge Instructions Instructions: Laparoscopic Appendectomy (DC) Additional Instructions: Care after Surgery -Pain control: ?For the first 72 hours after surgery, take you pain meds continuously and not just when you have pain.?? Alternate Tylenol 1000mg by mouth every 8 hours, and Ibuprofen 600mg every 6 hours.? Make sure you take ibuprofen with food and not on an empty stomach.? ??Use the tramadol for breakthrough pain- pain that is greater than a 7. ?- Use ICE! Ice really helps to keep the swelling down, and swelling causes pain. ??Twenty minutes on, and then off, continuously for the first 72hours.? After the first 72hrs, you can just use the Tylenol, or ibuprofen , and ice, ?when you have pain.?? If you are taking narcotic pain medication, follow the instructions on the label and do not drive. Pain medications can make you very constipated. Make sure you are moving your bowels daily. If not, take Miralax, milk of magnesia or magnesium citrate.? - Anesthesia makes you very constipated.? Take a dose of milk of magnesia the morning after surgery. ? Use an ice bag for the first 72 hours. This helps to decrease swelling, which causes pain. It is normal to be more sore/painful and swollen towards the end of the day and first thing in the morning. ? Use milk of magnesia or prune juice to prevent constipation (this is a particular side effect of pain medication and anesthesia). Do not allow yourself to become constipated. -regular diet -continue Incentive Spirometer 10x/hour while awake. This helps prevent penuemonia. ? Start out eating very small, bland amounts of food. Do not take pain pills on an empty stomach. - You do have white steri tapes over the incision. These will fall off on there in 1 weeks time. This will wear off on its own.? It is OK to shower after 24hrs.? You do not need to cover the incisions. -You should walk frequently, gradually, increasing the distance. You may climb stairs, just go slowly. ? Do not go swimming or sit in a hot tub for two weeks. ? There are no stitches to remove. ? Do not drive your car x72hrs and then only if you have no pain and can move freely. Do not drive if you are taking pain narcotic pain medications. ? You may resume sexual activity whenever pain and soreness subside, usually in 2 weeks. ? Do no lift anything over 5 lbs. for two weeks. ? You may return to work in one week, or when you feel able, provided you do not have to do any heavy lifting or prolonged standing. ? You should return to Dr. Tinoco's office for a post-op appointment about two weeks after surgery. A follow-up should have been scheduled for you already.? If there is not, please call the [facility] at: [phone] to schedule an appointment. My Medications for pain and nausea are: Tylenol/ibuprofen ?and ultram- for severe pain ? When to Call the Office: ? If the incision becomes red or swollen, or there is more than a little drainage from it. ? If you develop a temperature higher than 100.5 F. ? If your eyes turn yellow ? Vomiting and can?t keep fluids down Stand Alone Forms: Nursing Discharge Form Referrals: Antonino Tinoco MD [ [facility] STAFF PHYSICIAN] - 09/20/21 9:00 am Activity:: see above Equipment/Supplies:: No Equipment Needed Diet:: Normal Diet Discharge Orders Discharge Orders: Discharge Order (Routine); Ordered 09/07/21 Ordered By: Giovana Palma DS: Summary Time Spent with Patient providing and/or coordinating discharge services: Less than 30 minutes Status at Discharge Functional status at discharge: independent ambulation Overall status at discharge: patient is back to baseline Mental Status: mental status grossly normal Speech and Movement: speech and movement normal Mood: congruent mood Affect: normal affect Exam Const General: cooperative, healthy appearing and comfortable Orientation: alert and oriented x3 Resp Effort & Inspection: normal respiratory effort, no audible wheezes and no cough GI Inspection: normal to inspection Palpation: soft, no guarding and tender periumbilically Psych Mental Status: mental status grossly normal Speech and Movement: speech and movement normal Mood: congruent mood Affect: normal affect DS: Data Vitals/I&O Vitals and I&O: Vital Signs Temperature 36.4 C L 09/07/21 07:13 Temperature Source Tympanic 09/07/21 07:13 Pulse 59 L 09/07/21 07:13 Pulse Rhythm Regular 09/07/21 07:56 Respiratory Rate 16 09/07/21 07:13 Respiratory Effort 09/07/21 07:56 Respiratory Depth Normal 09/07/21 07:56 Respiratory Pattern Normal 09/07/21 07:56 Blood Pressure 130/74 09/07/21 07:13 Blood Pressure Position Sitting 09/06/21 10:55 Pulse Oximetry 94 09/07/21 07:13 Respiratory End-tidal CO2 37 09/06/21 19:07 Oxygen Delivery Method Room Air 09/07/21 07:13 Oxygen Flow Rate 0 09/07/21 07:13 Pain Level 0 09/07/21 07:28 Comment 09/07/21 07:28 Intake & Output 09/06/21 09/07/21 09/07/21 18:59 06:59 18:59 Intake Total 750 / 1660.25 910.25 / 1660.25 240 / 240 Output Total 200 / 900 700 / 900 Balance 550 / 760.25 210.25 / 760.25 240 / 240 Weight 62.142 kg Intake: IV 750 / 1610.25 860.25 / 1610.25 Oral 50 / 50 240 / 240 Output: Urine 200 / 900 700 / 900 Other: Urine Color Yellow Light Desire Urine Appearance Clear Clear Urine Odor Normal Comment received pt without pimentel Emesis Description None None Voiding Methods Toilet Data Completed and Pending Labs on day of discharge: Labs from last 24 hours 09/06/21 09/06/21 09/06/21 13:20 11:50 11:30 WBC 5.80 RBC 4.47 Hgb 13.8 Hct 41.0 MCV 92 MCH 30.9 MCHC 33.7 RDW 12.3 Plt Count 161 MPV 11.0 Immature Gran % 0.2 Neutrophils % 81.3 Lymphocytes % 14.0 Monocytes % 4.0 Eosinophils % 0.2 Basophils % 0.3 Nucleated RBC % 0.0 Absolute Neutrophils 4.72 Absolute Lymphocytes 0.81 L Absolute Monocytes 0.23 Absolute Eosinophils 0.01 Absolute Basophils 0.02 Sodium Potassium Chloride Carbon Dioxide Anion Gap BUN Creatinine Estimated GFR/1.73 m2 Glucose Calcium Total Bilirubin AST ALT Alkaline Phosphatase Total Protein Albumin Lipase Urine Color Yellow Urine Clarity Clear Urine pH 5.5 Ur Specific [place] 1.025 Urine Protein Negative Urine Ketones Negative Urine Blood Moderate H Urine Nitrite Negative Urine Bilirubin Negative Urine Urobilinogen 0.2 Ur Leukocyte Esterase Negative Urine RBC 20-50 H Urine WBC Negative Ur Epithelial Cells Rare Urine Crystals Negative Urine Bacteria Negative Urine Casts Negative Urine Mucus Negative Ur Culture Indicated? No Urine Glucose Negative COVID-19 Source Nasal/Nares SARS-CoV-2 (PCR) Negative 09/06/21 11:30 WBC RBC Hgb Hct MCV MCH MCHC RDW Plt Count MPV Immature Gran % Neutrophils % Lymphocytes % Monocytes % Eosinophils % Basophils % Nucleated RBC % Absolute Neutrophils Absolute Lymphocytes Absolute Monocytes Absolute Eosinophils Absolute Basophils Sodium 142 Potassium 4.1 Chloride 107 Carbon Dioxide 29.1 Anion Gap 5.9 BUN 23 H Creatinine 0.9 Estimated GFR/1.73 m2 >= 60.00 Glucose 112 H Calcium 8.5 Total Bilirubin 0.5 AST 12 L ALT 18 Alkaline Phosphatase 51 Total Protein 6.1 L Albumin 3.5 Lipase 108 Urine Color Urine Clarity Urine pH Ur Specific [place] Urine Protein Urine Ketones Urine Blood Urine Nitrite Urine Bilirubin Urine Urobilinogen Ur Leukocyte Esterase Urine RBC Urine WBC Ur Epithelial Cells Urine Crystals Urine Bacteria Urine Casts Urine Mucus Ur Culture Indicated? Urine Glucose COVID-19 Source SARS-CoV-2 (PCR) PFSH All Active Problems (Updated 09/06/21 @ 16:56 by CLEMENTINE Yao) Acute appendicitis (Acute) Hyperlipidemia (Chronic) Osteopenia (Chronic) Dexa scan 12/25/18 Medical History (Updated 09/06/21 @ 16:56 by CLEMENTINE Yao) Hepatitis C virus infection cured after antiviral drug therapy (~2001) Interferon/Ribaviron Sigmoid diverticulosis Surgical History Hx of colonoscopy (03/20/19) S/P tonsillectomy (~1957) Family History (Updated 03/20/21 @ 18:26 by Susannah Lora) Mother Type 2 diabetes mellitus Crohn's disease Dementia Hypertension Skin cancer Diabetes Heart disease Father , in his 50s of stroke Alcohol abuse Dementia Hypertension Parkinson disease Stroke Sister , 12/2019 Substance abuse heroin Type 2 diabetes mellitus Heart disease COPD (chronic obstructive pulmonary disease) Hypertension Alcohol abuse Cancer Depression Diabetes Hyperlipidemia Sister Osteoarthritis Sister Heart disease Myocardial infarction Skin cancer Colon cancer Brother Type 2 diabetes mellitus Hypertension Colon cancer Diabetes Heart disease Hyperlipidemia Brother Prostate cancer Maternal Grandfather Heart disease Maternal Grandmother Heart disease Rheumatic heart disease Paternal Grandfather Heart disease Paternal Grandmother Heart disease Social History (Updated 03/20/21 @ 18:21 by Susannah Lora) Smoking/Tobacco Use Status: Former Tobacco Use tobacco type: cigarettes Quit Date: 02/24/90 Tobacco: How many years used: 15 Second Hand Exposure: Yes Smoking risk assessment performed?: Yes Alcohol Intake: former Year quit: 1990 Drug use: Never Substance use type: does not use Caregiver/Support person: No Household members: spouse and family Housing: house Communication Needs: None Education Level: master's degree Do you need help understanding health information?: Never current occupation: Worked in [employer] x 30 years, circuit / computer design Pets and animals: Yes Pets and animals: dog(s) Sexually active: No Do you think of yourself as: straight/heterosexual Current gender identity: female What is your relationship status?: How often do you talk on the phone with friends or family?: three or more times per week Panel score (0-1 are the most socially isolated patients): 2 What type of physical activity do you participate in: weight lifting and yoga Duration: 60-90 minutes/day Frequency: 3-4 times per week Lorraine/Pentecostal: No preference Special lorraine needs: No Seatbelt use: always Helmet use: Yes Helmet use: always Drive intox or ride w/intox emergency medical technician/driver: No Do you feel safe at home: Yes Do you feel safe in your relationship?: Yes Additional Social history: Enjoys skiing in winter, hiking in the summer. Female Reproductive History Menstrual Menopause type: natural History History 2 Para 0 Hx # Term Pregnancies Multiple births Hx # Pregnancies Ectopic pregnancies AB induced Hx Number of Living Children AB spontaneous
--- NOTE | 2021-09-07 09:38 | CMDISCH_ITS ---
- If Service Date Differs Date of service: 09/07/21 Time of Service: 09:38 LACE Index Scoring Tool - Questions: Length of Stay (in days): 1 Acuity (Admit via E.D.?): Yes E.D. Visits: 1 - Answers: Total Score: 5 Risk of Readmission: Low Risk Care Management Discharge Reason for Hospitalization: Acute appendicitis Discharge Plan: Aury is discharged home via private vehicle with family. Aury will follow up with Surgical Office on 09/20/21 as scheduled. No new [facility] services are ordered at time of discharge. Patient/Family Education Needs: Review discharge instructions, limitations, medications and plan to follow up with community providers. ask me three.
[2021-09-07] MEDS: Acetaminophen 500 MG TAB 1000 MG PO (11:25)
== END 2021-09-07 14:04 | disposition home or self-care (01) | DRG 343 ==
LOC: ER 15:47 → DSU 16:46 → MS 19:15
PROVIDERS: Physician Assistant; Admitting Provider Surgery; Emergency Provider Physician Assistant; PCP Family Medicine; Visit Provider Surgery
PROC: 0DTJ4ZZ Resection of Appendix, Percutaneous Endoscopic Approach (ICD-10-PCS; CPT 44970; principal; 2021-09-06 16:30)
DX: K35.80 Unspecified acute appendicitis (principal); E78.5 Hyperlipidemia, unspecified; M85.80 Other specified disorders of bone density and structure, unspecified site; Z87.891 Personal history of nicotine dependence
CPT/HCPCS: 44970; 36415; 80053; 83690; 87635; 96365; 99222; 99285; J1650; 74176; 81003; 81015; 85025; 88304; J1100; J1885; J2405; J2543; J2704

== ENCOUNTER → 2021-09-20 08:51 | Outpatient (BNVA) | payer MEDICARE, BC, SELFPAY | PROVIDERS: PCP Family Medicine; Referring Provider Family Medicine; Visit Provider Surgery | DX: Z48.815 Encounter for surgical aftercare following surgery on the digestive system (principal) ==

== ENCOUNTER 2022-04-03 02:29 | Outpatient (CLI) | payer MEDICARE, BC, SELFPAY ==
--- NOTE | 2022-04-03 07:30 | DI.RAD_ITS ---
Exam(s) XR HIP RT COMPLETE AP PELVIS EXAM: XR HIP RT COMPLETE AP PELVIS CLINICAL HISTORY: right hip pain, limited ROM,M25.551. TECHNIQUE: 2D digital imaging was performed. COMPARISON: No exams were available for comparison FINDINGS: Two views: No evidence of pelvic nor hip fracture. No hip joint space narrowing evident on either side. SI teddy nts unremarkable. Bone density normal. No osseous lesions. IMPRESSION: No significant radiographic findings. DATA REPOSITORY: RADIATION DOSE DELIVERED:
--- NOTE | 2022-04-03 07:30 | DI.RAD_ITS ---
Exam(s) XR SHOULDER RT COMPLETE 2+V EXAM: XR SHOULDER RT COMPLETE 2+V CLINICAL HISTORY: right shoulder pain with pushups,M25.511. TECHNIQUE: 2D digital imaging was performed. COMPARISON: CR XR SHOULDER RT COMPLETE 2+V from 03/04/2019 FINDINGS: Four views: No evidence of fracture or dislocation or abnormal soft tissue calcifications. Bone density normal. No osseous lesions. No degenerative changes in the glenohumeral and AC joints. No osseous lesions. Clavicle appears unremarkable. IMPRESSION: No significant osseous findings. DATA REPOSITORY: RADIATION DOSE DELIVERED:
== END 2022-04-03 02:49 ==
PROVIDERS: PCP Family Medicine; Visit Provider Family Medicine
DX: M25.511 Pain in right shoulder (principal); M25.551 Pain in right hip
CPT/HCPCS: 73030; 73502

== ENCOUNTER 2022-06-20 07:46 | Outpatient (CLI) | payer MEDICARE, BC, SELFPAY ==
--- NOTE | 2022-06-20 07:30 | DI.MRI_ITS ---
Exam(s) MR LOWER JOINT RT WO EXAM: MR LOWER JOINT RT WO CLINICAL HISTORY: right hip pain,m25.551 TECHNIQUE: Multiplanar multisequence MRI of Pelvis was performed COMPARISON: CR XR HIP RT COMPLETE AP PELVIS from 04/03/2022 FINDINGS: Bones: There is no fracture or contusion pattern. No bone marrow edema is seen. Joints: No significant joint effusion or gross labral defect is present. The SI joints and symphysis pubis are well maintained. Musculotendinous structures: Musculotendinous structures demonstrate no abnormality. Intrapelvic structures demonstrate no significant abnormality. IMPRESSION: Normal MRI examination of the pelvis. DATA REPOSITORY:
== END 2022-06-20 08:06 ==
LOC: DI 07:46
PROVIDERS: PCP Family Medicine; Visit Provider Family Medicine
DX: M25.551 Pain in right hip (principal)
CPT/HCPCS: 73721

== ENCOUNTER 2022-10-22 02:43 | Outpatient (CLI) | payer MEDICARE, BC, SELFPAY ==
[2022-10-22 12:18] LABS: Absolute Basophil Count 0.02 10^3/uL (0.0-0.2); Absolute Eosinophil Count 0.02 10^3/uL (0.0-0.7); Absolute Monocyte Count 0.31 10^3/uL (0.1-0.8); Absolute Neutrophil Count 1.72 10^3/uL (1.2-6.7); Basophils % 0.6; Eosinophils % 0.6; HCT 43.2 % (36.0-46.0); HGB 14.3 g/dL (11.2-15.7); MCHC 33.1 % (32.0-36.0); MCV 94 fL (80-95); MPV 11.1 fL (8.0-11.0); Monocytes % 8.7; Neutrophils % 48.1; Platelet Count 185 10^3/uL (130-400); RBC 4.62 10^6/uL (3.93-5.22); RDW 12.5 % (11.7-14.6); WBC 3.57 10^3/uL (4.4-10.8)
[2022-10-22 12:36] LABS: ALT 21 U/L (14-59); AST 18 U/L (15-37); Albumin 3.8 g/dL (3.4-5.0); Alkaline Phosphatase 55 U/L (46-116); Anion Gap 6.5 mmol/L (3-11); BUN 14 mg/dL (7-18); Bilirubin, Total 0.9 mg/dL (0.2-1.0); CO2 30.5 mmol/L (21.0-32.0); Calcium 9.5 mg/dL (8.5-10.1); Calculated LDL 146 mg/dL (<100); Chloride 105 mmol/L (98-107); Cholesterol 228 mg/dL (<200); Estimated GFR 61.36 (mL/min/1.73m2); Glucose 102 mg/dL (74-106); HDL Cholesterol 71 mg/dL (40-60); Potassium 4.7 mmol/L (3.5-5.1); Sodium 142 mmol/L (136-145); TSH (W/Ref FT4) 1.74 uIU/mL (0.36-3.74); Total Protein 6.7 g/dL (6.4-8.2); Triglyceride 57 mg/dL (<150)
[2022-10-22 13:01] LABS: Creatine Kinase 89 U/L (26-192)
[2022-10-23 10:26] LABS: Lyme Ab w Rflx to Lyme Confirm Negative (Negative)
[2022-10-25 12:17] LABS: Anaplasma phagocytophilum Negative (Negative); B. miyamotoi PCR Negative (Negative); Babesia divergens/MO-1 Negative (Negative); Babesia duncani Negative (Negative); Babesia microti Negative (Negative); Ehrlichia chaffeensis Negative (Negative); Ehrlichia ewingii/canis Negative (Negative); Ehrlichia muris eauclairensis Negative (Negative)
== END 2022-10-22 02:44 | disposition home or self-care (01) ==
LOC: LOS 02:43
PROVIDERS: PCP Family Medicine; Visit Provider Family Medicine
DX: E78.00 Pure hypercholesterolemia, unspecified (principal); R53.83 Other fatigue; R25.1 Tremor, unspecified; Z91.89 Other specified personal risk factors, not elsewhere classified; Z11.8 Encounter for screening for other infectious and parasitic diseases
CPT/HCPCS: 36415; 80053; 80061; 82550; 87798; 84443; 85025; 86618

== ENCOUNTER 2022-11-07 13:32 | Outpatient (CLI) | payer MEDICARE, BC, SELFPAY ==
--- NOTE | 2022-11-07 13:30 | RT.EKG_ITS ---
APPROVED REPORT Exam: Resting ECG Reason for Exam: Dizziness/SOB/General weakness Patient Location: O HR:57 bpm ECG Measurements Heart Rate 57 AXIS LA 149 P 4 QRSd 87 QRS 33 QT 389 T 48 QTc 379 Conclusion Sinus rhythm...normal P axis, V-rate 50- 99 Probable left atrial enlargement...P >50mS, <-0.10mV V1 Otherwise normal ECG
== END 2022-11-07 13:33 | disposition home or self-care (01) ==
LOC: DI.CM 13:34
PROVIDERS: PCP Family Medicine; Visit Provider Family Medicine
DX: R06.02 Shortness of breath (principal); R42 Dizziness and giddiness; R53.1 Weakness
CPT/HCPCS: 93010

== ENCOUNTER → 2022-11-13 02:43 | Outpatient (CLI) | payer MEDICARE, BC, SELFPAY ==
--- NOTE | 2022-11-13 08:00 | DI.US_ITS ---
APPROVED REPORT EXAM: Comprehensive 2D, Doppler, and color-flow Echocardiogram Patient Location: Out-Patient Marketing Technology Specialist: Brian Steven RDCS (AE) Indications: Exertional lightheadedness, Dyspnea, orthostatic hypotension Other Information Study Quality: Adequate Conclusion Normal left ventricular wall thickness and chamber size. Ejection fraction is 60%. Wall motion is n ormal Normal right ventricular size and systolic function Both atria are normal in size There is no structural or hemodynamically significant valvular disease Wall motion Left Ventricle The left ventricle is normal size. The left ventricular systolic function is normal. The left ventric ular ejection fraction is within the normal range. There is normal left ventricular wall thickness. T here is normal LV segmental wall motion. There is no ventricular septal defect visualized. LVEF is 60 %. Right Ventricle The right ventricle is normal size. The right ventricular systolic function is normal. Atria The left atrium size is normal. The right atrium size is normal. The interatrial septum is intact wit h no evidence for an atrial septal defect. Aortic Valve The aortic valve is normal in structure. Aortic valve is trileaflet. There is no aortic valvular sten osis. Trace aortic regurgitation. Mitral Valve The mitral valve is normal in structure. No evidence of mitral valve stenosis. Trace mitral regurgita tion. Tricuspid Valve The tricuspid valve is normal in structure. There is no tricuspid valve stenosis. Trace tricuspid reg urgitation. Unable to assess PA pressure. Pulmonic Valve The pulmonary valve is normal in structure. There is no pulmonic valvular stenosis. Trace pulmonic re gurgitation. Great Vessels The aortic root is normal in size. The ascending aorta is mildly dilated. Aortic arch is normal in ca liber. IVC is normal in size and collapses >50% with inspiration. Pericardium There is no pericardial effusion. 2D Dimensions IVSD d PLAX 0.78 cm F: 0.6-1.0 Ao Root d 3.10 cm F: 2.7 - 3.3 LVPW d PLAX 0.82 cm F: 0.6 - 1.0 Ao Asc Diam d 3.42 cm F: 2.3 - 3.1 LVID d PLAX 4.61 cm F: 3.8 - 5.2 LVDs 3.23 cm F: 2.2 - 3.5 LV EF Teichholz 57.2 % FS 29.94 % LV EDV (Teich) 97.7 mL LV ESV (Teich) 41.8 mL M-Mode TAPSE 2.56 cm (M/F) >1.7 Auto EF LV EDV A4C 86.0 mL LV EDV A2C 76.5 mL LV EDV BP 81.4 mL LV ESV A4C 37.4 mL LV ESV A2C 33.0 mL LV ESV BP 34.8 mL LVEF(%) A4C 56.5 % LVEF(%) A2C 56.9 % LVEF(%) BP 57.3 % LV SV A4C 48.6 ml LV SV A2C 43.5 ml LV SV BP 46.7 ml LV CO A4C 2.5 L/min LV CO A2C 2.3 L/min LV CO BP 2.4 L/min HR A4C 51.14 BPM HR A2C 52.94 BPM LV EDV Index (BP) LA Volume LA Length A4C 4.3 cm LA Length A2C 4.6 cm LA Area A4C s 13.33 cm2 LA Area A2C s 11.87 cm2 LA Vol A4C A-L 34.80 mL LA Vol A2C A-L 26.28 mL LA Vol Biplane A-L 31.0 mL LA Vol/BSA A4C A-L LA Vol/BSA A2C A-L LA Vol/BSA BP A-L 17.9 mL/m2 LA Vol A4C MOD 31.5 mL LA Vol A2C MOD 25.2 mL LA Vol BP MOD 28.7 mL RA Volume RA Area A4C 10.1 cm2 RA ESV A4C (A-L) 23.3mL RA Vol/BSA A4C A-L RA Length A4C 3.8 cm RA ESV A4C (MOD) 21.6mL LV Diastology MV E' medial 0.044 (>0.07 m/s) MV E Vmax 0.58 (0.4-1.3 m/s) MV E/E' MED 13.34 (<14) MV A Vmax 0.95 (0.4-1.3 m/s) MV E' lateral 0.056 (>0.1 m/s) E/A Ratio 0.6 MV E/E' LAT 10.37 (<14) MV E' Average 0.050 m/s MV E/E'(average) 11.67 Aortic Valve AoV Vmax 1.47 m/s LVOT Vmax 1.00 m/s AoV Peak Grad 8.6 mmHg LVOT Peak Grad 4.0 mmHg AoV Area (Vmax) 1.90 cm2 LVOT VTI 0.240 m AoV VTI 0.349 m LVOT Mean Grad 2.1 mmHg AoV Mean Pascual. 1.00 m/s LVOT SV 67.09 mL AoV Mean Grad 4.6 mmHg LVOT Diam s 1.85 cm AoV Area (VTI) 1.92 cm2 Velocity Ratio 0.68 Mitral Valve MV DT 229 (160-240 msec) MV Vmax TIPS 0.81 m/s MV Mean Grad 0.9 (<2mmHg) MV VTI 0.343 m Pulmonary Valve PV Vmax 0.78 (0.5-1.5 m/s) RVOT Vmax 0.61 m/s PV Peak Grad 2.4 mmHg RVOT Peak Gr. 1.5 mmHg PV Mean Pascual 0.56 m/s RVOT VTI 0.152 m PV Mean Grad 1.4 mmHg RVOT Mean Gr. 0.8 mmHg Tricuspid Valve TV S' 0.15 m/s
== END ==
PROVIDERS: PCP Family Medicine; Visit Provider Family Medicine
DX: I95.1 Orthostatic hypotension (principal); R06.09 Other forms of dyspnea
CPT/HCPCS: 93306

== ENCOUNTER 2022-11-13 19:16 | Outpatient (CLI) | payer MEDICARE, BC, SELFPAY ==
[2022-11-13 15:01] LABS: Vitamin B12 155 pg/mL (193-986)
[2022-11-13 15:14] LABS: Creatine Kinase 79 U/L (26-192)
== END 2022-11-13 19:17 | disposition home or self-care (01) ==
LOC: LBO 19:17
PROVIDERS: PCP Family Medicine; Visit Provider Family Medicine
DX: R25.1 Tremor, unspecified (principal); R53.1 Weakness; I95.1 Orthostatic hypotension; E53.8 Deficiency of other specified B group vitamins; R53.83 Other fatigue
CPT/HCPCS: 36415; 82550; 93306; 82607

== ENCOUNTER 2022-11-29 13:12 | Outpatient (RCR) | payer MEDICARE, BC, SELFPAY ==
--- NOTE | 2022-11-29 13:16 | HOLTER_ITS ---
APPROVED REPORT Conclusion This is a 48-hour Holter monitor ordered for shortness of breath on exertion Rhythm throughout is sinus. Average heart rate is 67. Minimum was 47, maximum 131 There was 1 isolated PVC There were 3 atrial premature beats There was no atrial fibrillation, no SVT, no high-grade AV block, no pauses greater than 3 seconds Patient symptoms were reported which showed no correlation with any dysrhythmia
== END 2022-12-25 23:59 | disposition home or self-care (01) ==
LOC: CARDOPNVT 13:12
PROVIDERS: PCP Family Medicine; Visit Provider Family Medicine
DX: R06.00 Dyspnea, unspecified (principal)
CPT/HCPCS: 93227; 93225; 93226

== ENCOUNTER 2023-03-04 04:23 | Outpatient (CLI) | payer MEDICARE, BC, SELFPAY ==
[2023-03-04 14:51] LABS: Abs Immature Grans 0.01 10^3/uL (0.0-0.06); Absolute Basophil Count 0.03 10^3/uL (0.0-0.2); Absolute Eosinophil Count 0.04 10^3/uL (0.0-0.7); Absolute Lymphocyte Count 1.67 10^3/uL (1.2-3.4); Absolute Monocyte Count 0.34 10^3/uL (0.1-0.8); Absolute Neutrophil Count 3.33 10^3/uL (1.2-6.7); Basophils % 0.6; Eosinophils % 0.7; HCT 45.4 % (36.0-46.0); HGB 15.4 g/dL (11.2-15.7); Immature Grans % 0.2; Lymphocytes % 30.8; MCH 31.2 pg (27.0-33.0); MCHC 33.9 % (32.0-36.0); MCV 92 fL (80-95); MPV 10.2 fL (8.0-11.0); Monocytes % 6.3; Neutrophils % 61.4; Platelet Count 186 10^3/uL (130-400); RBC 4.93 10^6/uL (3.93-5.22); RDW 12.1 % (11.7-14.6); RDW-SD 41.2 fL; WBC 5.42 10^3/uL (4.4-10.8)
[2023-03-04 15:31] LABS: Vitamin B12 712 pg/mL (193-986)
== END 2023-03-04 04:24 | disposition home or self-care (01) ==
LOC: LBO 04:23
PROVIDERS: PCP Family Medicine; Visit Provider Family Medicine
DX: E53.8 Deficiency of other specified B group vitamins (principal)
CPT/HCPCS: 36415; 82607; 85025

== ENCOUNTER → 2023-05-07 02:44 | Outpatient (CLI) | payer MEDICARE, BC, SELFPAY ==
--- NOTE | 2023-05-07 06:45 | DI.MRI_ITS ---
Exam(s) MR CERVICAL SPINE WO EXAM: MR CERVICAL SPINE WO CLINICAL HISTORY: tremor,UPPER EXT weakness, neck pain,R25.1,R29.898 TECHNIQUE: Multiplanar multisequence MRI of the cervical spine was performed without intravenous con trast. COMPARISON: There are no plain films available time this MRI interpretation. FINDINGS: CERVICOMEDULLARY JUNCTION: Intact with no evidence of cerebellar tonsillar ectopia. No obvious abnor mality of the odontoid process. No evidence of Chiari 1 malformation. CERVICAL SPINAL CORD: There is no abnormal signal in the cervical spinal cord and no evidence of foca l cord atrophy nor focal cord swelling. OSSEOUS:There is reversal of the normal curvature at the mid-lower cervical level. No fractures nor listhesis. No ominous osseous lesions. Benign intraosseous hemangioma is noted in C5 vertebral body . INDIVIDUAL LEVELS: C2-3: Normal disc height. No disc herniation. No central canal stenosis. Moderate degenerative cristobal nges in the right facet joint. No facet joint degenerative changes on the left side. No significant foraminal stenosis on either side at this level. C3-4: Preserved disc height. Mild annular bulging. No prominent disc herniation nor central canal s tenosis. There are degenerative changes in the right facet joint and minimal degenerative change in the left facet joint. Mild bilateral foraminal stenosis C4-5: Chronic decreased disc height. There appears to be a suggestion of mild posterior level fusion of the vertebral bodies. There is no disc herniation. Central canal dimensions are within normal l imits. There is fusion across the left facet joints at this level. No fusion of the right facet teddy nt minimal foraminal stenosis bilaterally. C5-6: This level exhibits chronic advanced disc space narrowing. Posteriorly there is annular bulgin g with a small superimposed posterolateral right disc protrusion and Luschka joint osteophyte. Large r Luschka joint osteophytes noted laterally left side at this level. This slightly indents the anter ior right side of the thecal sac. There is mild central canal stenosis at this level with effacement of the anterior thecal sac but not the spinal cord. AP measurement of the canal is 10.5 mm at this level. There is no obvious degenerative change in either facet joints at this level. There is severe left-sided foraminal stenosis at this level, this mostly related to the Luschka joint osteophyte. Only mild foraminal stenosis is evident on the right side. C6-7: This level also exhibits advanced chronic disc space narrowing and anterior osseous lipping is noted. Posteriorly there are small Luschka joint osteophytes. There is no disc herniation at this l evel. Mild facet joint degenerative changes noted on the right side and minimal if any significant d egenerative changes in the facet joints on the left side. There is mild bilateral foraminal stenosis . C7-T1: No disc herniation nor central canal stenosis. No facet arthropathy.No foraminal stenosis. IMPRESSION: 1. Multilevel chronic degenerative disc disease in the mid-lower cervical spine as described above. There is no prominent disc herniation. Small posterolateral right disc protrusion noted at C5-6 leve l and mild central canal stenosis at this level. 2. There is multilevel foraminal stenosis, this being most severe on the left side at C5-6 level. 3. There is reversal of the normal cervical curvature at and below see 4-5 level. There is partial f usion of the posterior osseous aspect of C2 4-5 vertebral bodies and there is fusion across the left facet joint at C4-5 level (no fusion across the right facet joint at this level). DATA REPOSITORY:
== END ==
PROVIDERS: PCP Family Medicine; Visit Provider Family Medicine
DX: M50.322 Other cervical disc degeneration at C5-C6 level; M50.323 Other cervical disc degeneration at C6-C7 level
CPT/HCPCS: 72141

== ENCOUNTER → 2023-05-13 03:43 | Outpatient (CLI) | payer MEDICARE, BC, SELFPAY ==
--- NOTE | 2023-05-13 08:45 | DI.MRI_ITS ---
Exam(s) MR BRAIN WO EXAM: MR BRAIN WO CLINICAL HISTORY: Right hand weakness ongoing and worsening,r29.898 TECHNIQUE: Multiplanar multisequence MRI of the brain was performed. COMPARISON: No exams were available for comparison FINDINGS: CEREBRAL PARENCHYMA: There is no evidence of intracranial hemorrhage, mass effect, or shift of midline structures. There are no extra-axial fluid collections. Ventricles are not enlarged or shifted. There is no significant focal signal abnormality in the cerebellar hemispheres nor within the brandi, m idbrain, and thalami. There few small FLAIR bright foci of white matter signal abnormality, largest being in the left occip ital region measuring approximately 8 x 5 mm. Not associated with hemorrhage, surrounding edema nor restricted diffusion. Most probably related to chronic white matter ischemic changes. Smaller foci are seen in the bilateral frontal white matter. There is no significant focal signal abnormality evident on diffusion imaging to suggest acute ischem ic event. PITUITARY GLAND: No mass nor parasellar abnormality. No obvious abnormality in the cavernous sinuses. FLOW VOIDS: The expected flow void are noted. No evidence of obvious aneurysm nor obvious vascular ma lformation. PARANASAL SINUSES: The visualized paranasal sinuses appear unremarkable. No obvious finding ORBITS: No obvious findings. IMPRESSION: Mild nonspecific white matter findings as described above. DATA REPOSITORY:
== END ==
PROVIDERS: PCP Family Medicine; Visit Provider Family Medicine
DX: R29.898 Other symptoms and signs involving the musculoskeletal system (principal)
CPT/HCPCS: 70551

== ENCOUNTER → 2023-05-21 01:59 | Outpatient (CLI) | payer MEDICARE, BC, SELFPAY ==
--- NOTE | 2023-05-21 08:15 | DI.RAD_ITS ---
Exam(s) XR CHEST 2V PA LATERAL EXAM: XR CHEST 2V PA LATERAL CLINICAL HISTORY: right arm weakness - ? cervical rib,,R29.898 TECHNIQUE: 2D digital imaging was performed of the chest. Two images were obtained. PA and lateral views were obtained. COMPARISON: CR CHEST 2 VIEWS PA,LAT from 08/22/2011 FINDINGS: MEDIASTINUM: Normal. HEART: Normal. PULMONARY VASCULATURE: Normal. LUNGS: Clear. PLEURAL SPACE: No pleural effusion or pneumothorax. BONE:Within normal limits for the patient's age. There is no evidence of a cervical rib on this exam ination. OTHER FINDINGS:Normal. IMPRESSION: No acute pulmonary findings. DATA REPOSITORY: RADIATION DOSE DELIVERED:
== END ==
PROVIDERS: PCP Family Medicine; Visit Provider Family Medicine
DX: R29.898 Other symptoms and signs involving the musculoskeletal system (principal)
CPT/HCPCS: 71046

== ENCOUNTER 2023-05-21 05:22 | Outpatient (CLI) | payer MEDICARE, BC, SELFPAY ==
[2023-05-21 13:29] LABS: ESR 2 mm/hr (0-30)
[2023-05-21 14:23] LABS: ALT 24 U/L (14-59); AST 22 U/L (15-37); Albumin 4.1 g/dL (3.4-5.0); Alkaline Phosphatase 59 U/L (46-116); Anion Gap 7.8 mmol/L (3-11); BUN 18 mg/dL (7-18); Bilirubin, Total 0.6 mg/dL (0.2-1.0); C-Reactive Protein < 0.50 mg/dL (<or=0.5); CO2 31.2 mmol/L (21.0-32.0); CREATININE 0.9 mg/dL (0.55-1.02); Calcium 10.5 mg/dL (8.5-10.1); Chloride 105 mmol/L (98-107); Creatine Kinase 62 U/L (26-192); Glucose 101 mg/dL (74-106); Potassium 3.9 mmol/L (3.5-5.1); Sodium 144 mmol/L (136-145); TSH (W/Ref FT4) 1.79 uIU/mL (0.36-3.74); Total Protein 7.2 g/dL (6.4-8.2)
[2023-05-21 21:47] LABS: Lab Add On Test DONE
[2023-05-22 17:03] LABS: Parathyroid Hormone,Intact 37 pg/mL (19-88)
== END 2023-05-21 05:23 | disposition home or self-care (01) ==
PROVIDERS: PCP Family Medicine; Visit Provider Family Medicine
DX: Z00.00 Encounter for general adult medical examination without abnormal findings (principal); R29.898 Other symptoms and signs involving the musculoskeletal system; E03.9 Hypothyroidism, unspecified; E83.52 Hypercalcemia
CPT/HCPCS: 36415; 80053; 82550; 85652; 71046; 83519; 83970; 84443; 86140

== ENCOUNTER → 2023-05-30 13:39 | Outpatient (BNVA) | payer MEDICARE, BC, SELFPAY | PROVIDERS: PCP Family Medicine; Referring Provider Family Medicine; Visit Provider Psychiatry & Neurology Neurology | DX: G20.C Parkinsonism, unspecified (principal); I95.1 Orthostatic hypotension; R20.2 Paresthesia of skin | CPT/HCPCS: 99215; G2212 ==

== ENCOUNTER → 2023-07-11 10:12 | Outpatient (BNVA) | payer MEDICARE, BC, SELFPAY | PROVIDERS: PCP Family Medicine; Referring Provider Family Medicine; Visit Provider Psychiatry & Neurology Neurology | DX: G20.A1 Parkinson's disease without dyskinesia, without mention of fluctuations (principal); I95.1 Orthostatic hypotension; R20.2 Paresthesia of skin | CPT/HCPCS: 99215 ==

== ENCOUNTER → 2023-09-18 14:47 | Outpatient (BNVA) | payer MEDICARE, BC, SELFPAY | PROVIDERS: PCP Family Medicine; Referring Provider Family Medicine; Visit Provider Psychiatry & Neurology Neurology | DX: I95.1 Orthostatic hypotension (principal); R20.2 Paresthesia of skin; G20.A1 Parkinson's disease without dyskinesia, without mention of fluctuations | CPT/HCPCS: 99215 ==

== ENCOUNTER → 2024-01-21 12:50 | Outpatient (BNVA) | payer MEDICARE, BC, SELFPAY | PROVIDERS: PCP Family Medicine; Referring Provider Family Medicine; Visit Provider Psychiatry & Neurology Neurology | DX: I95.1 Orthostatic hypotension (principal); R20.2 Paresthesia of skin; G20.A2 Parkinson's disease without dyskinesia, with fluctuations | CPT/HCPCS: 99214 ==

== ENCOUNTER 2024-05-14 01:07 | Outpatient (CLI) | payer MEDICARE, BC, SELFPAY ==
--- NOTE | 2024-05-14 07:00 | DI.DEXA_ITS ---
Exam(s) XR DEXA BONE DENSITY W/WO AIMEE EXAM: XR DEXA BONE DENSITY W/WO AIMEE CLINICAL HISTORY: Screening,menopausal disorder,n95.9 TECHNIQUE: [employer] Horizon C densitometer analysis of left hip, lumbar spine and right forearm. La teral survey image of the thoracic and lumbar spine. COMPARISON: DX DEXA BONE DENSITY WITH AIMEE from 03/21/2011 CR XR DEXA BONE DENSITY W/WO AIMEE from 12/25/2018 FINDINGS: Lateral view of the thoracic and lumbar spine shows no evidence of compression fractures. Bone mineral density measurements of the lumbar spine correspond to a total T-score of -0.8, in the n ormal range. This represents a 6.6 percent decrease compared with 2019 and a 10.5 percent decrease c ompared with 2011. Bone mineral density measurements of the left hip correspond to a total T-score of 0.8, in the dilan l range. This represents a 2.4 percent decrease from 2019 in the 8.9 percent decrease from 2011. Th e femoral neck T-score is 0.2, in the normal range.. Theright forearm bone mineral density measurements correspond to a T-score of the distal 3rd of -3.1 , in the osteoporotic range. This represents a 17.2 percent decrease from 2019 and a 21.3 percent de crease from 13/02.. IMPRESSION: Normal bone mineral density of the spine and hip with mild decreases from prior exams. Osteoporosis of the right forearm with significant decreased from prior.
--- NOTE | 2024-05-14 09:40 | DI.MAMMO_ITS ---
Exam(s) MAMMO SCREENING EXAM: MAMMO SCREENING CLINICAL HISTORY: screening,z12.39 TECHNIQUE: Mammograms were interpreted according to the usual protocol including computer analysis w [employer] CAD system, tomosynthesis and C-view imaging. COMPARISON: 2014 through 2021 FINDINGS: The breasts are composed of scattered fibroglandular densities, Breast Density category B. No suspicious masses or suspicious microcalcifications are seen. No skin thickening or abnormal axillary lymph nodes are seen. There has been no significant change from prior exams. IMPRESSION: BI-RADS Category 1, Negative mammogram Yearly screening mammography is recommended. Breast Density - Category B, scattered fibroglandular densities. A negative radiographic report should not delay biopsy if a dominant or clinically suspicious mass is present. Up to ten percent of cancers are not identified on mammography. A negative report may reinforce clinical impression. Adenosis and dense breasts may obscure an underlying neoplasm. False positive reports average 6 to 10%. Patient will receive a letter notifying them of these results.
== END 2024-05-14 01:27 ==
LOC: DI 01:07
PROVIDERS: PCP Family Medicine; Visit Provider Family Medicine
DX: N95.9 Unspecified menopausal and perimenopausal disorder (principal); Z12.31 Encounter for screening mammogram for malignant neoplasm of breast; Z13.820 Encounter for screening for osteoporosis
CPT/HCPCS: 77063; 77067; 77080

== ENCOUNTER → 2024-07-16 14:25 | Outpatient (BNVA) | payer MEDICARE, BC, SELFPAY | PROVIDERS: PCP Family Medicine; Referring Provider Family Medicine; Visit Provider Psychiatry & Neurology Neurology | DX: I95.1 Orthostatic hypotension (principal); G20.A2 Parkinson's disease without dyskinesia, with fluctuations | CPT/HCPCS: 99214 ==

== ENCOUNTER → 2024-09-23 10:43 | Outpatient (BNVA) | payer MEDICARE, BC, SELFPAY | PROVIDERS: PCP Family Medicine; Referring Provider Family Medicine; Visit Provider Physical Therapy Assistant | DX: Z12.11 Encounter for screening for malignant neoplasm of colon (principal); Z80.0 Family history of malignant neoplasm of digestive organs | CPT/HCPCS: S0285 ==

== ENCOUNTER → 2024-12-09 13:43 | Outpatient (BNVA) | payer MEDICARE, BC, SELFPAY | PROVIDERS: PCP Family Medicine; Referring Provider Family Medicine; Visit Provider Psychiatry & Neurology Neurology | DX: G20.A2 Parkinson's disease without dyskinesia, with fluctuations (principal); I95.1 Orthostatic hypotension; R03.0 Elevated blood-pressure reading, without diagnosis of hypertension | CPT/HCPCS: 99214 ==

== ENCOUNTER 2025-01-13 06:06 | Day surgery (SDC) | payer MEDICARE, BC, SELFPAY ==
[2025-01-13 06:15] VITALS: BP 126/80; PULSE 82; RESP 18; TEMP 36.2; O2SAT 97
[2025-01-13] MEDS: Lactated Ringers 1,000 ML 80 ML IV (06:55)
[2025-01-13 07:10] VITALS: BMI 21.0
--- NOTE | 2025-01-13 07:10 | W.ANESPRE ---
General Info Date of Service Date Performed: 01/13/25 Height: 5 ft 7.5 in Weight: 62 kg Body Mass Index (BMI): 21.0 Surgical Procedure: Operation Date: 01/13/25 07:35 Proposed Procedure Side Surgeon emmanuelle Willis MD Meds Allergies and Home Medications Allergies Allergy/AdvReac Type Severity Reaction Status Date / Time eggplant Allergy Mild Nausea Verified 01/13/25 06:33 Home Medication Medication Instructions Recorded calcium carb and lactate 200 2 tab PO DAILY 11/27/18 mg-vitamin D3 6.25 mcg (250 unit) tablet naproxen sodium 220 mg capsule 220 mg PO PRN PRN 03/17/21 (Aleve) cyanocobalamin (vitamin B-12) 1,000 mcg PO DAILY #90 tabs 11/13/22 1,000 mcg tablet cholecalciferol (vitamin D3) 25 25 mcg PO DAILY 01/21/24 mcg (1,000 unit) capsule bisacodyl 5 mg tablet,delayed 5 mg PO ONCE #4 tabs 09/23/24 release (Dulcolax (bisacodyl)) polyethylene glycol 3350 17 17 g PO ONCE #238 grams 09/23/24 gram/dose oral powder entacapone 200 mg tablet 200 mg PO QID #360 tabs 11/02/24 carbidopa 25 mg-levodopa 100 mg 1 tab PO QID #360 tabs 12/09/24 tablet carbidopa ER 25 mg-levodopa 100 mg 1 tab PO QHS #90 tabs 12/09/24 tablet,extended release Current Visit Medications: Current Medications Generic Name Dose Route Start Last Admin Trade Name Vladq PRN Reason Stop Dose Admin Ringer's Solution 1,000 mls @ 80 mls/hr 01/13/25 06:00 01/13/25 06:55 IV 01/13/25 23:59 80 mls/hr INFUSION JUANITO Administration IV Miscellaneous Supplies 1 each 01/13/25 06:00 Iv Access IV 01/13/25 23:59 DIRECTED JUANITO Sodium Biphosphate/Sodium Phosphate 133 ml 01/13/25 06:00 Na Phosphate Enema-Adult 133 Ml Btl TN 01/13/25 23:59 DIRECTED PRN Sodium Chloride 0 ml 01/13/25 06:00 Normal Saline Flush 10 Ml Syr IV 01/13/25 23:59 PRN PRN Sodium Chloride 0 ml 01/13/25 06:00 Normal Saline 10 Ml Vial IJ 01/13/25 23:59 DIRECTED PRN Sterile Water 0 ml 01/13/25 06:00 Water,Injection,Sterile 10 Ml Vial IJ 01/13/25 23:59 DIRECTED PRN PFSH Active Problems Active Problems: Problem Status Onset Code Parkinson disease Chronic G20.A1 B12 deficiency due to diet Acute E53.8 Orthostatic hypotension Acute I95.1 Trochanteric bursitis, right hip Acute M70.61 Elevated BP without diagnosis of hypertension Acute R03.0 Posterior vitreous detachment Acute ~01/14/22 H43.819 Kidney stone on right side Acute N20.0 Osteopenia Chronic M85.80 Hyperlipidemia Chronic E78.5 Medical History Medical History Sigmoid diverticulosis Hepatitis C virus infection cured after antiviral drug therapy (~2001) Interferon/Ribaviron Surgical History Surgical History Hx of appendectomy (~08/2021) Hx of colonoscopy (03/20/19) S/P tonsillectomy (~1957) Tobacco Smoking/Tobacco Use Status: Former Tobacco Use Passive smoking exposure: Yes (father was a smoker (70 years ago)) Second hand exposure: Yes Alcohol Alcohol Intake: former Year quit: 1990 Substance Use Substance use: Never Substance use type: does not use Prental History History 2 Para 0 Hx # Term Pregnancies Multiple births Hx # Pregnancies Ectopic pregnancies AB induced Hx Number of Living Children AB spontaneous Vital Signs and Lab Results Vital Signs Most Recent Vital Signs in EMR: Most Recent Vital Signs Temp Pulse Resp BP Pulse Ox 36.2 C L 82 18 126/80 97 01/13/25 06:15 01/13/25 06:15 01/13/25 06:15 01/13/25 06:15 01/13/25 06:15 Anesthesia Assessment and Plan Anesthesia History Personal History: No History of Anesthesia Complications Family History: No Family History of Anesthesia Complications Exercise Tolerance Exercise Tolerance: Metabolic Equivalents>4 Pertinent Negatives Pertinent Negatives: No Symptoms of GERD Cardiac & Pulmonary Exam Cardiac Exam: Normal S1/S2 Heart Sounds Pulmonary Exam: Clear Bilateral Breath Sounds Implantable Cardiac Device Does patient have a Pacemaker or an ICD?: No Airway Exam Known Difficult Airway: No Mallampati Class: 2 Mouth Opening: Normal (> 3cm) Thyromental Distance: Greater than 3 cm Neck Range of Motion: Full ROM Neck Circumference: Normal Teeth Condition: Normal Dentition ASA Classification ASA Score: ASA 2 Emergency Case?: No NPO Status NPO Status: NPO Clears >2 hours, Solids >8 hours Anesthesia Plan Resuscitation Status: Full Code Anesthesia Technique: General Anesthesia Airway Planned: Natural Airway Monitors Used: Standard Monitors
--- NOTE | 2025-01-13 07:24 | W.PM.HP.N ---
Date of service: 01/13/25 Time of Service: 07:24 Assessment and Plan Assessment and plan (1) Family history of colon cancer: Status: Acute Assessment and plan: Patient is a 69 yo female who presents for a colonoscopy. She denies any changes in her bowel habits. She does have a family history of colon cancer. The risks and benefits were discussed and consent was obtained prior to the procedure. Plan for colonoscopy. History of Present Illness Narrative: Patient is a 69 yo female who presents for a colonoscopy. She denies any changes in her bowel habits. She does have a family history of colon cancer. She denies any recent changes in her health. Review of Systems Cardiovascular Cardiovascular: Denies chest pain and Denies dyspnea Respiratory Respiratory: Denies dyspnea Gastrointestinal Gastrointestinal: Denies abdominal pain, Denies nausea and Denies vomiting Genitourinary Genitourinary: Denies dysuria PFSH All Active Problems (Updated 01/13/25 @ 07:26 by Erum Willis MD) Family history of colon cancer (Acute) Parkinson disease (Chronic) B12 deficiency due to diet (Acute) Orthostatic hypotension (Acute) Trochanteric bursitis, right hip (Acute) Elevated BP without diagnosis of hypertension (Acute) Posterior vitreous detachment (Acute ~01/14/22) Kidney stone on right side (Acute) Osteopenia (Chronic) Dexa scan 12/25/18 Hyperlipidemia (Chronic) Medical History Sigmoid diverticulosis Hepatitis C virus infection cured after antiviral drug therapy (~2001) Interferon/Ribaviron Surgical History Hx of appendectomy (~08/2021) Hx of colonoscopy (03/20/19) S/P tonsillectomy (~1957) Family History Mother , 97 Type 2 diabetes mellitus Crohn's disease Dementia Hypertension Skin cancer Diabetes Heart disease Father , in his 50s of stroke Alcohol abuse Dementia Hypertension Parkinson disease Stroke Sister , 12/2019 Substance abuse heroin Type 2 diabetes mellitus Heart disease COPD (chronic obstructive pulmonary disease) Hypertension Alcohol abuse Cancer Depression Diabetes Hyperlipidemia Sister Osteoarthritis Sister Heart disease Myocardial infarction Skin cancer Colon cancer Brother Age: 74 Type 2 diabetes mellitus Hypertension Colon cancer Diabetes Heart disease Hyperlipidemia Chronic pancreatitis Brother Age: 69 Prostate cancer Maternal Grandfather Heart disease Maternal Grandmother Heart disease Rheumatic heart disease Paternal Grandfather Heart disease Paternal Grandmother Heart disease Social History Smoking/Tobacco Use Status: Former Tobacco Use tobacco type: cigarettes Quit Date: 02/24/90 Tobacco: How many years used: 10 Second Hand Exposure: Yes Smoking risk assessment performed?: Yes Alcohol Intake: former Year quit: 1990 Drug use: Never Substance use type: does not use Adopted: No Caregiver/Support person: No Household members: spouse Housing: house Number of Children: 0 Communication Needs: None Education Level: master's degree Do you need help understanding health information?: Rarely current occupation: Worked in [employer] x 30 years, circuit / computer design- Retired Pets and animals: Yes Pets and animals: dog(s) Sexually active: No Do you think of yourself as: straight/heterosexual Current gender identity: female What is your relationship status?: How often do you talk on the phone with friends or family?: three or more times per week How often do you get together with friends or relatives?: three or more times per week Do you belong to any clubs or organized social groups?: yes Panel score (0-1 are the most socially isolated patients): 3 What type of physical activity do you participate in: other Details: Conditioning, hiking, hiit training, boxing and yoga Duration: 60-90 minutes/day Frequency: daily Lorraine/Adventist: Non baptist Special lorraine needs: No Seatbelt use: always Helmet use: Yes Helmet use: always Drive intox or ride w/intox pile driver engineer: No Firearms in home: Yes Firearms unloaded and locked: Yes Do you feel safe at home: Yes Do you feel safe in your relationship?: Yes Victim of physical abuse: No Victim of emotional abuse: No Victim of sexual abuse: No Would you like helpful sources: No Female Reproductive History Menstrual Menopause type: natural History History 2 Para 0 Hx # Term Pregnancies Multiple births Hx # Pregnancies Ectopic pregnancies AB induced Hx Number of Living Children AB spontaneous Meds Allergies and Home Medications Allergies Allergy/AdvReac Type Severity Reaction Status Date / Time eggplant Allergy Mild Nausea Verified 01/13/25 06:33 Home Medications Medication Instructions Recorded Confirmed Type calcium carb and lactate 200 2 tab PO DAILY 11/27/18 01/13/25 History mg-vitamin D3 6.25 mcg (250 unit) tablet naproxen sodium 220 mg capsule 220 mg PO PRN PRN 03/17/21 01/13/25 History (Aleve) cyanocobalamin (vitamin B-12) 1,000 mcg PO DAILY #90 tabs 11/13/22 01/13/25 Rx 1,000 mcg tablet cholecalciferol (vitamin D3) 25 25 mcg PO DAILY 01/21/24 01/13/25 History mcg (1,000 unit) capsule bisacodyl 5 mg tablet,delayed 5 mg PO ONCE #4 tabs 09/23/24 01/13/25 Rx release (Dulcolax (bisacodyl)) polyethylene glycol 3350 17 17 g PO ONCE #238 grams 09/23/24 01/13/25 Rx gram/dose oral powder entacapone 200 mg tablet 200 mg PO QID #360 tabs 11/02/24 01/13/25 Rx carbidopa 25 mg-levodopa 100 mg 1 tab PO QID #360 tabs 12/09/24 01/13/25 Rx tablet carbidopa ER 25 mg-levodopa 100 mg 1 tab PO QHS #90 tabs 12/09/24 01/13/25 Rx tablet,extended release Exam Narrative Exam Narrative: General: Well appearing, no acute distress. Skin: Good turgor, no visible rashes or lesion HEENT: Normocephalic, atraumatic CV: Regular rate Lungs: Bilateral equal chest rise, non-labored breathing Abdomen: Non-distended Extremities: Warm, well perfused Neurologic: No focal deficits Psychiatric: Alert and oriented, normal mood and affect Results Last Vital Signs Temp 36.2 C L 01/13/25 06:15 Pulse 82 01/13/25 06:15 Resp 18 01/13/25 06:15 BP 126/80 01/13/25 06:15 Pulse Ox 97 01/13/25 06:15 Time Spent Time spent with Patient: <40 minutes Time was spent: preparing to see the patient(eg.review tests), obtaining and/or reviewing separately otained hiistory and counseling the patient
[2025-01-13 07:50] VITALS: BP 124/70; PULSE 57; RESP 14; TEMP 36.4; O2SAT 99
--- NOTE | 2025-01-13 07:51 | PDOC.DSDIS_ITS ---
Date of service: 01/13/25 Discharge Plan Disposition Patient Disposition: Home Condition: Good Discharge Details Reason For Visit: Colonoscopy Attending Provider: Erum Willis Primary Care Provider: Hortensia Roe Home Meds and New Rx's Prescriptions: Continued naproxen sodium [Aleve] 220 mg capsule 220 mg PO PRN PRN cholecalciferol (vitamin D3) 25 mcg (1,000 unit) capsule 25 mcg PO DAILY calcium carb,lactat-vitamin D3 200 mg calcium -250 unit tablet 2 tab PO DAILY carbidopa-levodopa 25-100 mg tablet 1 tab PO QID Qty: 360 3RF Rx Instructions: At ~6am, 9am, 1pm, and 5pm; carbidopa-levodopa 25-100 mg tablet extended release 1 tab PO QHS Qty: 90 3RF cyanocobalamin (vitamin B-12) 1,000 mcg tablet 1,000 mcg PO DAILY Qty: 90 3RF entacapone 200 mg tablet 200 mg PO QID Qty: 360 3RF Rx Instructions: administer at the same time as l-dopa/carbidopa dose Discontinued bisacodyl [Dulcolax (bisacodyl)] 5 mg tablet,delayed release (DR/EC) 5 mg PO ONCE Qty: 4 0RF Rx Instructions: Take per colonoscopy instructions provided by ordering providers office polyethylene glycol 3350 17 gram/dose powder 17 g PO ONCE Qty: 238 0RF Rx Instructions: Take per colonoscopy instructions provided by ordering providers office Discharge Instructions Additional Instructions: Unfortunately the prep for your colonoscopy today was inadequate to perform the entire procedure. The colon was unable to be visualized adequately to see polyps. Given this finding we will need reschedule you for a repeat colonoscopy with a different prep strategy. Our office will contact you to set this up. 1. If tolerated, consume a soft, low fiber diet for 1-2 days. [address] Do not drive, drink alcohol, operate machinery, make critical decisions, or do activities that require coordination or balance for 24 hours. 3. Because air was put into your colon during the procedure, expelling air from your rectum (passing gas or farting) is normal. 4. You may not have a bowel movement for 1-3 days because of the colonoscopy prep. This is normal. 5. Go directly to the emergency room if you notice any of the following: Develop chills (warm to touch), or if you have a thermometer and your temperature is above 101 Difficulty breathing or difficultly swallowing Persistent vomiting Severe abdominal pain, other than gas cramps Severe chest pain Black, tarry stools Any bleeding – exceeding one tablespoon 6. Call your physician if the site where your intravenous was started becomes red, swollen, painful, and warm to touch. 7. Your physician has reviewed your pre-procedure medications. Please continue to take those medications as previously ordered. You will be given specific in formation/education regarding any changes to your medications before leaving. Stand Alone Forms: Anesthesia Discharge Inst., Colonoscopy Post Instructions, [facility] Glover (DS[facility]), Portal Information Activity:: Activity as Tolerated Diet:: As Tolerated Discharge Orders Discharge Orders: Discharge Order (Routine); Ordered 01/13/25 Ordered By: Erum Willis DS: Diagnosis Discharge Diagnosis (1) Family history of colon cancer: Status: Acute
--- NOTE | 2025-01-13 07:53 | W.ANESPOSTOP ---
Postoperative Evaluation Date, Time and Location Date Performed: 01/13/25 Time Performed: 07:53 Patient Location: Day Surgery Unit Vital Signs Most Recent Imported Vital Signs: Most Recent Vital Signs Temp Pulse Resp BP Pulse Ox 36.4 C L 57 L 14 124/70 99 01/13/25 07:50 01/13/25 07:50 01/13/25 07:50 01/13/25 07:50 01/13/25 07:50 Pain Score Most Recent Pain Score: Most Recent Pain Score Pain Level 0 01/13/25 07:50 Assessment Mental Status: Awake (Alert & Oriented to Patient Baseline) Airway and Respiratory Function: Patent airway with normal (patient baseline) respiratory exam Cardiovascular Function: Hemodynamically Stable Hydration Status: Adequately Hydrated Nausea & Vomiting: No Nausea or Vomiting Pain: Pt. Denies Any Pain Peripheral Nerve Block: Patient did not receive a nerve block
--- NOTE | 2025-01-13 07:54 | W.COLOREPORT ---
Date of service: 01/13/25 Time of Service: 07:54 Colonoscopy Report Date of procedure: 01/13/25 Pre-op diagnosis general: Screening colonoscopy, family history of colon cancer Post-op diagnosis procedure note: same Procedure: Colonoscopy Surgeon: Erum Willis Anesthesia Type: General:No Airway Estimated blood loss (mL): 0 Pathology: none sent Complications: None Disposition: PACU Indications: Patient is a 69 yo female who presents for a colonoscopy. She denies any changes in her bowel habits. She does have a family history of colon cancer. Prep: Miralax/Dulcolax Procedure Start Time: 07:39 Procedure End Time: 07:44 Findings: Liquid and solid stool throughout the rectum and sigmoid. Inadequate prep precluding visualization. Procedure Description: Informed consent was obtained. The patient was taken to the endoscopy suite and placed in the left lateral decubitus position. After adequate intravenous sedation, digital rectal exam was performed, which was normal. A colonoscope was inserted into the rectum and negotiated to the sigmoid colon. There was copious liquid and solid stool precluding visualization of the colon. The prep was inadequate so the decision was made not to proceed further. The patient tolerated the procedure well with no complications. Postoperatively, the patient was transferred to the recovery room in stable condition. [place] Bowel Prep [place] Bowel Prep Left Colon: 1 Total Score: 1
[2025-01-13 08:09] VITALS: BP 144/72; PULSE 52; RESP 14; TEMP 36.5; O2SAT 100
== END 2025-01-13 08:26 | disposition home or self-care (01) ==
PROVIDERS: PCP Family Medicine; Visit Provider Student in an Organized Health Care Education/Training Program
PROC: 0DJD8ZZ Inspection of Lower Intestinal Tract, Via Natural or Artificial Opening Endoscopic (ICD-10-PCS; CPT 45378; principal; 2025-01-13 07:30)
DX: Z80.0 Family history of malignant neoplasm of digestive organs (principal); Z12.11 Encounter for screening for malignant neoplasm of colon
CPT/HCPCS: G0105; J2003; J2704